=== PATIENT | male | born 1945 | race Caucasian/White ===

== ENCOUNTER → 2016-11-13 | Outpatient (CLI) | payer OTHER ==
[~2016-11-13] MED LIST: LSN/2025 PO; OMEP20CA9 PO; OXYC1TAB3 PO
--- NOTE | 2016-11-13 15:23 | DIAGNOSTIC IMAGING REPORT ---
TWO VIEW CHEST CLINICAL HISTORY: Preoperative examination. FINDINGS: PA and lateral chest radiographs are compared to study dated 09/26/2015. The cardiomediastinal silhouette is unremarkable. Atherosclerotic calcification is noted in the thoracic aorta. Emphysematous change and chronic interstitial thickening are similar to previous. No airspace consolidation or pleural effusion is identified. There is no pneumothorax. The skeletal structures are osteopenic. The bony thorax appears intact. IMPRESSION: Emphysematous change with no active disease in the chest. Electronically signed by: Kin Drummond M.D. 11/13/2016 3:21 PM Dictated Date/Time: 11/13/2016 3:20 PM
[2016-11-13 16:45] LABS: URINE APPEARANCE CLEAR (CLEAR); URINE BILIRUBIN NEG (NEG); URINE COLOR YELLOW; URINE NITRITE NEG (NEG); URINE SPECIFIC GRAVITY 1.011 (1.000-1.030); UROBILINOGEN NEG (NEG); ZZUR CULT IF INDIC CLEAN CATCH NO
[2016-11-13 17:00] LABS: MANUAL MICROSCOPIC REQUIRED? NO; REVIEW REQ? NO
== END | disposition home or self-care (01) ==
LOC: C.RAD 14:46
PROVIDERS: ATTEND Orthopaedic Surgery
DX: Z01.810 Encounter for preprocedural cardiovascular examination (principal); Z01.811 Encounter for preprocedural respiratory examination; M25.512 Pain in left shoulder; I49.3 Ventricular premature depolarization

== ENCOUNTER → 2017-04-30 | Outpatient (CLI) | payer OTHER ==
--- NOTE | 2017-04-30 13:45 | DIAGNOSTIC IMAGING REPORT ---
CT SCAN OF THE BRAIN WITHOUT IV CONTRAST CLINICAL HISTORY: Dementia. Change in mental status. COMPARISON STUDY: CT of the brain dated 11/08/14. TECHNIQUE: Unenhanced axial CT scan of the brain is performed from the vertex to the skull base. CT DOSE: 537.48 mGy.cm FINDINGS: Brain parenchyma: There are age-related involutional changes noting mild subcortical and periventricular microangiopathic change. There is no hemorrhage, mass effect, or evidence of acute territorial ischemia by CT criteria. Alberto-white matter is preserved. No extra-axial fluid collection is seen. Ventricles, sulci, cisterns: Prominent secondary to involutional change. Intracranial vasculature: There is atherosclerotic calcification of the cavernous carotid arteries. Calvarium: Unremarkable. Sinuses and mastoids: The visualized paranasal sinuses are clear. The mastoid air cells are well pneumatized. Orbits: The bony orbits are grossly intact. There are bilateral ocular lens implants. IMPRESSION: There is no hemorrhage, mass effect, or evidence of acute territorial ischemia by CT criteria. Electronically signed by: Kin Drummond M.D. 04/30/2017 1:43 PM Dictated Date/Time: 04/30/2017 1:41 PM
== END | disposition home or self-care (01) ==
LOC: C.CTS 13:10
PROVIDERS: ATTEND Family Medicine
DX: F03.91 Unspecified dementia, unspecified severity, with behavioral disturbance (principal); R41.82 Altered mental status, unspecified; R63.4 Abnormal weight loss

== ENCOUNTER → 2017-12-10 | Outpatient (CLI) | payer OTHER ==
--- NOTE | 2017-12-10 13:25 | DIAGNOSTIC IMAGING REPORT ---
L HIP UNILATERAL 2 VIEWS HISTORY: 72 years-old Male LT HIP PAIN acute left-sided hip and lower back pain COMPARISON: None available TECHNIQUE: 2 views of the left hip FINDINGS: Mild degenerative changes about the left femoral acetabular joint. No acute fracture or dislocation. Calcifications of the pelvis suggest phleboliths. Fusion hardware of the lumbosacral spine is partially imaged. IMPRESSION: No acute fracture or dislocation. The above report was generated using voice recognition software. It may contain grammatical, syntax or spelling errors. Electronically signed by: Ronaldo Palmer M.D. 12/10/2017 1:23 PM Dictated Date/Time: 12/10/2017 1:22 PM
--- NOTE | 2017-12-10 13:26 | DIAGNOSTIC IMAGING REPORT ---
L-SPINE MIN 4 VIEWS ROUTINE HISTORY: Pain M54.5 COMPARISON: None. FINDINGS: There is no fracture. No subluxation. Moderate degenerative disc changes throughout. Grade 1 retrolisthesis L3 on L4 secondary to degenerative changes of posterior elements. No evidence for compression deformity. Findings of laminectomy and fusion at L4, L5, and S1. Fusion hardware is intact. Disc spacers are present at L4-L5 and L5-S1. IMPRESSION: Degenerative and postoperative change. No acute process. The above report was generated using voice recognition software. It may contain grammatical, syntax or spelling errors. Electronically signed by: Rian Ellis M.D. 12/10/2017 1:25 PM Dictated Date/Time: 12/10/2017 1:22 PM
== END | disposition home or self-care (01) ==
LOC: C.RAD 12:37
PROVIDERS: ATTEND Family Medicine
DX: M54.5 Low back pain (principal); M79.605 Pain in left leg

== ENCOUNTER 2024-12-12 10:20 | Inpatient (IN) ==
[2024-12-12] MEDS: TICAGRELOR 90 MG TAB PO ONE (10:28)
[2024-12-12] MEDS: HEPARIN SOD 5,000 UNIT/0.5 ML VIAL ONE (10:28)
--- NOTE | 2024-12-12 10:36 | Pre Anesthesia Assessment ---
Date of Service December 12, 2024 Pre Sedation Assessment Vital Signs Pulse Resp BP Pulse Ox O2 Del Method 12/12/24 10:14 72 20 141/94 H 96 Room Air Cardiovascular RRR, no murmur, no edema + regular rate + S1 normal and + S2 normal + capillary refill normal Respiratory normal respiratory effort, lungs clear to auscultation Pre-Sedation Airway Assessment Smoking Status: Former smoker Mallampati Class: II ASA: ASA3 Procedure Planning Contraindications for Sedation: none Notes The planned sedation has been discussed with the patient. Informed Consent was obtained. I have identified the patient, determined the appropriateness of sedation and have assessed the patient immediately prior to the procedure. All medicine(s) and interventions are by my order.
[2024-12-12 10:52] LABS: Basophils # (auto) 0.11 K/uL (0.00-0.20); Basophils % (auto) 0.9 %; Eosinophils % (auto) 2.3 %; Hematocrit (blood only) 46.4 % (42.0-52.0); Hemoglobin 16.5 g/dl (14.0-18.0); Immature Granulocytes # (auto) 0.06 K/uL (0.01-0.20); Immature Granulocytes % (auto) 0.5 %; Lymphocytes # (auto) 1.57 K/uL (1.20-3.40); Lymphocytes % (auto) 12.1 %; Mean Corpuscular Hemoglobin 33.5 pg (25.0-34.0); Mean Corpuscular Hgb Conc 35.6 g/dL (32.0-36.0); Mean Corpuscular Volume 94.1 fL (80.0-100.0); Mean Platelet Volume 9.4 fL (9.4-12.4); Monocytes # (auto) 0.69 K/uL (0.11-0.59); Monocytes % (auto) 5.3 %; Neutrophils % (auto) 78.9 %; Platelet Count 318 K/uL (130-400); RDW Coefficient of Variation 12.3 % (11.5-14.5); RDW Standard Deviation 42.9 fL (36.4-46.3); Red Blood Count 4.93 M/uL (4.70-6.10); White Blood Count 12.93 K/ul (4.8-10.8)
[2024-12-12] MEDS: TICAGRELOR 90 MG TAB ONE (10:57)
[2024-12-12] MEDS: niCARdipine HCL INJ 2.5 MG/ML 10 ML AMP ONE (10:57)
[2024-12-12] MEDS: NITROGLYCERIN/D5W 100MCG/ML 20ML SYR ONE (10:57)
[2024-12-12] MEDS: HEPARIN SOD (PORCINE) 1000 UNIT/ML IV ONE (10:58)
[2024-12-12 11:08] LABS: Albumin Globulin Ratio 2.1 (0.9-2); Albumin Level 4.6 gm/dl (3.4-5.0); BUN Creatinine Ratio 14.8 (10-20); Bilirubin,Total 0.4 mg/dl (0.2-1.0); Calcium 9.4 mg/dl (8.6-10.3); Creatinine Clr Calc Pharmacy 64.2 ml/min; Globulin 2.2 gm/dl (2.5-4.0); Magnesium 1.9 mg/dl (1.7-2.4); Potassium 4.3 mmol/L (3.5-5.1); Total Protein 6.8 gm/dl (6.0-8.3)
[2024-12-12] MEDS: HEPARIN (PORCINE) 1000 UNIT/ML 10 ML (CATH LAB USE ONLY) ONE (11:16)
[2024-12-12 11:17] LABS: Partial Thromboplastin Time 28 Seconds (21-31); Prothrombin Time 10.6 Seconds (9.0-12.0)
[2024-12-12] MEDS: fentaNYL citrate PF 100 MCG/2 ML VIAL ONE (11:17)
[2024-12-12] MEDS: MIDAZOLAM HCL 1 MG/ML 2ML VIAL ONE (11:17)
[2024-12-12] MEDS: LIDOCAINE 1% LOCAL 20 ML VIAL ONE (11:17)
[2024-12-12] MEDS: FUROSEMIDE 40 MG/4 ML VIAL IV ONE (11:18)
[2024-12-12] MEDS ORDERED: NITROGLYCERIN SL 0.4 MG/TAB TAB SL PRN (11:22)
--- NOTE | 2024-12-12 11:22 | Cardiac Catheterization ---
Cardiac Cath Procedure Full Procedure Date December 12, 2024 Pre-Procedure Diagnosis Pre-Procedure Diagnosis: STEMI (Lateral STEMI) AUC Score AUC Score: 9 Post-Procedure Diagnosis Post-Procedure Diagnosis: Severe CAD, Successful PCI and Decreased LV Systolic Function Procedure(s) Performed Procedure(s) Performed: Coronary Angiography, Left Heart Cath, LV Angiography (STEMI cath report Procedures performed 1. Retrograde insertion of a right radial sheath, 5/6 slender using Seldinger technique 2. Coronary angiography 3. Left heart cath and left ventriculography 4. Percutaneous intervention of the left circumflex using a 3.0 mm x 30 mm Synergy XD drug-eluting ), PTCA and Drug Eluting Stent Timber Trimmer Juan Cantu MD Estimated Blood Loss Estimated Blood Loss: None Medication(s) Medication(s): 1 mg of versed 25 mcg of fentanyl Summary of Findings STEMI cath report Procedures performed 1. Retrograde insertion of a right radial sheath, 5/6 slender using Seldinger technique 2. Coronary angiography 3. Left heart cath and left ventriculography 4. Percutaneous intervention of the left circumflex using a 3.0 mm x 30 mm Synergy XD drug-eluting stent in the proximal to mid left circumflex 5. Moderate sedation Procedure: Patient was brought to the cardiac apposition lab in emergent condition, emergen t consent was obtained The right radial site and the right groin site were prepped in normal fashion We then administered 1% lidocaine to the right radial site We then inserted a 5/6 slender sheath in the right radial artery using Seldinger technique We then advanced a JR4 catheter to the right coronary artery and selective arteriograms were obtained We then advanced an EBU 3.0 guide to the left Yrn system and selective arteriograms were obtained, the results are as below We then used a pigtail catheter to perform a left heart catheterization and LV gram, the results are as below Left heart catheterization: LVEDP: 28 mmHg Left ventriculogram: LV function of 30 to 35% with lateral and apical wall hypokinesis Gradient across aortic valve: None noted Coronary angiography 1. Left main: Is a large size vessel which has diffuse luminal irregularities 2. Left anterior descending artery is a large size artery which has diffuse 40 to 50% stenosis in the midsegment the vessel. The rest the vessel has diffuse luminal irregularities. There are 2 small size diagonal branches which have diffuse luminal irregularities 3. Left circumflex: Is a large size artery which has 100% occlusion in the midsegment vessel. 4. Right coronary artery: Is a large size artery which has diffuse luminal irregularities Following the diagnostic portion of the coronary angiography were performed PCI of the left circumflex We then advanced a run-through wire to the distal segment of the LAD for support We then advanced a run-through wire to the distal segment of the left circumflex We then advanced a 2.5 x 12 mm NC balloon performed predilatation of the lesion 18 tex x 2 Due to lack of support from the EBU 3.0 guide we then advanced a guide liner after removing the run-through from the LAD We then advanced a 3.25 mm x 12 mm NC balloon and perform serial inflations in the proximal to mid segment of the left circumflex at 1400 stairs Lesion: Proximal to mid left circumflex Lesion length: 26 mm Pre-PCI stenosis: 100% Pre-PCI TANESHA flow: 0 Post-PCI stenosis: 0% Post-PCI stenosis: 3 Stent: We then advanced a 3.0 mm x 30 mm Synergy XD drug-eluting stent and deployed this at 16 tex Postdilatation We then advanced a 3.5 mm x 12 mm NC balloon and postdilated the proximal and midportion of the stent to 16 tex Following this a cine image of the left circumflex showed good stent expansion, good apposition and no edge dissection or no distal wire perforation the left circumflex was noted to have diffuse 40 to 50% stenosis in the mid to distal segment vessel Following the completion of the procedure the wire and catheter were removed from the body . The patient was monitored, patient's heart rate, blood pressure, respiratory rate were monitored through the entire the procedure There were no complications were noted Patient was transferred to the ICU in stable condition Case was discussed with hospital medicine as well as general crystal calibrator on- call Findings 1. Severe obstructive coronary artery disease of the left circumflex, culprit vessel for the STEMI 2. Nonobstructive coronary artery disease of the LAD and RCA 3. Severely depressed LV function of 35% 4. Severely elevated LVEDP of 28 mmHg 5. Successful PCI of the left circumflex with 1 drug-eluting stent Recommendations: We would recommend continuation of aspirin and Brilinta for 1 year We would recommend addition of beta-adarsh and statin for guideline directed medical therapy for his coronary artery disease We would recommend echocardiogram in a.m. Would recommend admission to ICU Hospital medicine to admit, cardiology to follow Would recommend outpatient cardiac rehabilitation Would recommend follow-up with primary crystal calibrator in 4 weeks Hemodynamics Rest Ao:: 97/49/71 mm of hg Final Ao: 136/85/78 mm of hg LV: 140/17/40 mm of hg Recommendations Recommendations: Medical Therapy and/or Counseling Radiation Exposure (mGy) 1449 Contrast (mls) 85 Procedural Complication(s) None Disposition ICU I attest to the content of the Intraoperative Record and any orders documented therein. Any exceptions are noted below. ACC Data: Delivery Aide Cardiac Status Clinical evaluation leading to the procedure CAD Presenation: STEMI Diagnostic Physicians Name: Juan Cantu MD Closure Device Recommendations: Medical Therapy and/or Counseling
[2024-12-12 11:23] LABS: Thyroid Stimulating Hormone 3.531 uIu/ml (0.300-4.500)
[2024-12-12 11:33] LABS: Troponin I High Sensitivity 77.8 pg/ml (0-20)
--- NOTE | 2024-12-12 11:40 | History & Physical Report ---
Date of Service December 12, 2024 Assessment & Plan (1) STEMI (ST elevation myocardial infarction): (2) Hypertension: (3) Hyperlipidemia: (4) Depression with anxiety: (5) Complex partial seizure disorder: (6) BPH (benign prostatic hyperplasia): (7) Chewing tobacco nicotine dependence: Plan 79yo male presented as heart alert. PMHx significant for HTN, HLD, tobacco use, seizure disordered. Recent addition of metoprolol by HTN clinic on 11/26 by Marla Lazo in addition to usual amlodipine, olmesartan and spironolactone. Not on ASA/statin at baseline, prior lipid panel December 2023 w/ TRG 91, Cholesterol 187 with LDL 104 and HDL 65. #STEMI, Heart Alert On admission EKG w/ depression in anterior leads concerning for STEMI to RCA vs circumflex Provided with Brillinta 180mg PO x 1 and heparin bolus prior to intervention with Dr Cantu s/p cath with Dr Cantu this morning revealed 100% occlusion to circumflex. s/p CLARE x 1. Admit to ICU Site Identification Specialist consulted Troponin elevation post-cath not unsurprising but no CP/sx at present Aspirin 81mg daily and lipitor 40mg -- new rx at dc +Metoprolol 25mg BID Olmesartan, spironolactone to resume in AM pending BP/renal function (BP 130/84 presently) EKG w/ CP, Nitro SL available Cards consulted/following Lipid panel and A1c w/ AM labs Smoking cessation to be encouraged Monitor on telemetry overnight Chronic medical issues: #Tobacco use- encourage cessation #BPH - continue flomax, monitor UOP #Seizure disorder- continue oxcarbazepine 450mg HS #Depression - continue sertraline, recent stress w/ daughter dx breast ca. Supportive care DVT proph: Heparin SQ BID Dispo: admit ICU, potential dc tomorrow if no issues overnight pending ECHO/cards. Updated /daughter in room 12/12 Will need ASA/lipitor at dc, new rx for changed metoprolol dosing History of Present Illness Chief Complaint: Heart Alert Primary Care Provider: Liborio Link, 79yo male presented as heart alert. EKG w/ depression in anterior leads concerning for STEMI to RCA vs circumflex and taken to manufacturing laborer with Dr Henderson on admission had 100% occlusion to circumflex and received 1 CLARE. Patient CP free following procedure and per cardiology to monitor in ICU post-cath and antiplatelet therapy has been ordered. PMHx significant for HTN, HLD, tobacco use, seizure disorder, venous stasis, hypoNa with recent stress of daughter dx breast ca and seen by HTN clinic and at that time was on amlodipine 10mg, olmesartan 40mg, spironolactone 50mg daily w/ systolic BP to 130s however do note recent fill for metoprolol succinate 25mg daily on 11/26 from Marla Marker from HTN clinic. Not prior on statin or aspirin use at baseline and Lipid panel from December 2023 w/ TRG 91, Cholesterol 187 with LDL 104 and HDL 65. Smoking history: + Hx BPH, on Flomax Maintained on oxcarbazepine 450mg HS for seizure disorder Admission post-cath for continued monitoring and changed metoprolol to 25mg BID. Eval post-cath in ICU 110, sitting up in bed eating lunch. Reports feeling MUCH better than this morning. His main symptom per daughter in room were significant weakness yesterday but no significant CP/SOB or increased GARCIA. Discussed stent placement and aspirin/statin, was not on either prior to admission. Did have some right knee discomfort/thought maybe gout in the past, currently NO issues. TR band intact, to start removing air around 2pm. No abdominal pain/nausea and will plan to monitor overnight with possible discharge tomorrow and medications will be reviewed. Discussed to alert nursing of any return of symptoms or development of CP/SOB. Questions/concerns addressed at this time Allergies Allergy/AdvReac Type Severity Reaction Status Date / Time Penicillins Allergy Severe Hives/throat Verified 11/24/24 12:56 edema - Amoxil ranitidine Allergy Intermediate Blisters Verified 11/24/24 12:56 in mouth amoxicillin Allergy HIVES/THROAT Verified 12/12/24 11:52 EDEMA Home Medications Medication Instructions Recorded Confirmed Type oxcarbazepine 150 mg tablet 450 mg PO HS 08/08/21 11/24/24 History olmesartan 40 mg tablet 40 mg PO QDAY #90 tabs 01/23/24 11/24/24 Rx amlodipine 10 mg tablet 10 mg PO DAILY #90 tabs 01/26/24 11/24/24 Rx spironolactone 50 mg tablet 50 mg PO QDAY #90 tabs 07/22/24 11/24/24 Rx tamsulosin 0.4 mg capsule 0.4 mg PO DAILY #90 caps 10/01/24 11/24/24 Rx metoprolol succinate 25 mg 25 mg PO DAILY #30 tabs 11/26/24 Rx tablet,extended release 24 hr Past Med/Surg History Problem List (Updated 12/12/24 @ 12:04 by Dima Harrell MD) 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 STEMI (ST elevation myocardial infarction) Hyponatremia Low back pain potentially associated with spinal stenosis Irritated nevus of face Sensorineural hearing loss of both ears Chewing tobacco nicotine dependence Chronic venous stasis dermatitis of both lower extremities Hypertension Neurogenic claudication due to lumbar spinal stenosis (Chronic) Tremor (Chronic) Hyperlipidemia Gout (Chronic) Depression with anxiety Complex partial seizure disorder (Chronic) BPH (benign prostatic hyperplasia) (Chronic) Medical History Acute bursitis of left shoulder Lower back pain Pain in joint of left shoulder Mild cognitive impairment Osteoarthritis Degenerative disc disease Chronic back pain Family history of diabetes mellitus Seizure Surgical History History of hand surgery History of elbow surgery History of repair of rotator cuff History of back surgery History of cataract extraction with lens replacement Surgery, elective Fusion of spine History of arthroscopy Family History Mother Diabetes Gall bladder disease Hypertension Aneurysm Father Aneurysm Lung disease Cardiac disorder Brother Cardiac disorder Unknown Myocardial infarction Other Family history of diabetes mellitus Denies family history of Ovarian cancer Prostate cancer Breast cancer Colorectal cancer Social History Smoking Status: Never smoker Tobacco Type: Cigarettes and Smokeless Tobacco (Dip or Chew) Age Started Using Tobacco: 21; Age Quit Using Tobacco: 46; packs per day: 1; Cigarettes Per Day: 20; Second Hand Exposure: No; Do You Dip or Chew Tobacco: Yes (1 can per 2-3 days ); Hx Alcohol Use: No Hx Substance Use: No Preferred Language: R[place] Communication Ability: Effective Visual Impairment: No Limitations Hearing Ability: Hard of Hearing Director Trial Required: No Beliefs That Will Affect Care: None marital status: Current Living Situation: Spouse current occupational status: retired current occupation: retired from career with [employer] How many Children do You have: 4 Feels Safe at Home: Yes Safety Concerns: Feels Safe At This Time Childhood Exposure to Second-Hand Smoke: No Diet: low salt and regular Diet Comment: reports some intake of lunch meat, prepares most food at home. caffeine: Yes (3 cups of coffee a day ) Dental Care, Regularly: No Physical Activity Frequency: Does not Exercise Physical Activity Frequency Comment: very active in his yard, walks. Seatbelt Use: always Sunscreen Use: Yes (sometimes ) Do you think of yourself as: straight/heterosexual Gender Identity: Male Assistive Devices: Denture - Upper and Denture - Lower Physical Exam Physical Exam: General: 79yo male sitting up in bed eating lunch, NAD, family in room Head atraumatic, +facial hair, mmm, trachea midline Resp; even/unlabored, on 2L NC post-cath, no tachypnea/cough CV: RRR, no significant m/r/g, no pitting edema or calf tenderness, pulses present TR band intact, no significant bleeding GI: +BS,soft/NT MSK/Neuro: nonfocal, not confused, answering questions appropriately Psych: AOx3, cooperative with exam Results & Data Results & Data Vital Signs (Past 12 Hours) Vital Signs Pulse Resp BP Pulse Ox O2 Del Method 12/12/24 10:39 70 12/12/24 10:31 130/84 12/12/24 10:31 130/84 12/12/24 10:31 75 20 130/84 95 12/12/24 10:31 70 20 130/84 96 12/12/24 10:30 69 17 96 12/12/24 10:30 140/92 12/12/24 10:30 140/92 12/12/24 10:14 72 20 141/94 H 96 Room Air Laboratory Results 12/12/24 12/12/24 12/12/24 Range/Units 12:34 10:36 10:20 WBC 12.93 H (4.8-10.8) K/ul RBC 4.93 (4.70-6.10) M/uL Hgb 16.5 (14.0-18.0) g/dl Hct 46.4 (42.0-52.0) % MCV 94.1 (80.0-100.0) fL MCH 33.5 (25.0-34.0) pg MCHC 35.6 (32.0-36.0) g/dL RDW Std Deviation 42.9 (36.4-46.3) fL RDW Coeff of Obed 12.3 (11.5-14.5) % Plt Count 318 (130-400) K/uL MPV 9.4 (9.4-12.4) fL Immature Gran % (Auto) 0.5 % Neut % (Auto) 78.9 % Lymph % (Auto) 12.1 % [place] % (Auto) 5.3 % Eos % (Auto) 2.3 % Baso % (Auto) 0.9 % Neut # (Auto) 10.20 H (1.40-6.50) K/uL Lymph # (Auto) 1.57 (1.20-3.40) K/uL [place] # (Auto) 0.69 H (0.11-0.59) K/uL Eos # (Auto) 0.30 (0.00-0.50) K/uL Baso # (Auto) 0.11 (0.00-0.20) K/uL Immature Gran # (Auto) 0.06 (0.01-0.20) K/uL PT 10.6 (9.0-12.0) Seconds INR 1.0 (0.9-1.1) APTT 28 (21-31) Seconds PTT Ratio 1.0 Activ Coag Time Kaolin 389 H (94-140) SECONDS Sodium 132 L (136-145) mmol/L Potassium 4.3 (3.5-5.1) mmol/L Chloride 100 (98-107) mmol/L Carbon Dioxide 27 (21-32) mmol/L Anion Gap 5 (3-11) BUN 16 (6-23) mg/dl Creatinine 1.08 (0.6-1.4) mg/dl Est Cr Clr Drug Dosing 64.2 ml/min eGFR 70.24 BUN/Creatinine Ratio 14.8 (10-20) Glucose 113 H (70-99(Fasting)) mg/dl Calcium 9.4 (8.6-10.3) mg/dl Magnesium 1.9 (1.7-2.4) mg/dl Total Bilirubin 0.4 (0.2-1.0) mg/dl AST 20 (13-39) U/L ALT 17 (7-52) U/L Alkaline Phosphatase 77 (34-104) U/L Total Creatine Kinase 92 (30-223) U/L Troponin I High Sens 02492.7 H* D 77.8 H* (0-20) pg/ml B-Natriuretic Peptide 47 (0-100) pg/ml Total Protein 6.8 (6.0-8.3) gm/dl Albumin 4.6 (3.4-5.0) gm/dl Globulin 2.2 L (2.5-4.0) gm/dl Albumin/Globulin Ratio 2.1 H (0.9-2) Lipase 17 (11-82) U/L TSH 3.531 (0.300-4.500) uIu/ml ECG Additional Comments: EKG review SR w/ ST depression in anterior leads concerning for STEMI RCA/circumflex. Supervising Physician Co-Signing Physician Notes The patient was seen by me. The chart was reviewed. Case discussed with JACKELINE Perales. Agree with assessment and plan PG Care Time/CCT Total # of Minutes Spent Total Time Spent with Patient: Total time spent is greater than 50% in coordination of care (as documented) at patient's floor/unit and/or counseling patient: Coding Level of Care Code 99612 INT INP/OBS CARE 3MIN Diagnoses STEMI (ST elevation myocardial infarction) I21.3 Primary hypertension I10 Hypertension type: primary hypertension Hyperlipidemia E78.5 Depression with anxiety F41.8 Complex partial seizure disorder G40.209 BPH (benign prostatic hyperplasia) N40.0 Chewing tobacco nicotine dependence F17.220 (2) Hypertension Hypertension type: primary hypertension Qualified Code(s): I10 - Essential (primary) hypertension
--- NOTE | 2024-12-12 12:08 | Critical Care Consultation ---
Date of Consultation December 12, 2024 Assessment & Plan (1) STEMI (ST elevation myocardial infarction): (2) 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: (3) Hyperlipidemia: (4) Hypertension: Plan Impression: 79-year-old male with hypertension hyperlipidemia presenting with acute coronary syndrome and an acute occluded circumflex status post drug- eluting stent. LVEDP was elevated at 28 and ejection fraction was reduced in the lab estimated at 30 to 35%. He is hemodynamically stable in the ICU. Recommendations: 1. Neurologic: No current issues. Patient can get up to the chair as tolerated. 2. Cardiovascular: Acute coronary syndrome status post drug-eluting stent. Continue dual antiplatelet agents. Discontinue amlodipine. Will continue metoprolol. If blood pressure allows, will need to initiate and uptitrate MAGDI inhibitor. Will need cardiac rehab in the outpatient setting. Await formal echocardiogram. Continue high-dose statin therapy 3. Pulmonary: No current issues. Weaning oxygen as tolerated. 4. Renal: Mild hyponatremia. Electrolytes and acid-base status are appropriate. His EDP was elevated and would consider initiation of a diuretic within the next 24 hours but will hold for now given recent contrast administration. 5. GI: Advancing diet as tolerated. 6. Endocrine: Glycemic control per protocol. Await hemoglobin A1c. 7. Heme-onc: Mild leukocytosis likely secondary to acute coronary syndrome. No indication for infection and no indication for antibiotics currently. 8. ID: No current issues. Will continue to follow in the ICU for protocol. Disposition per cardiology but anticipate he can likely be downgraded from the ICU in the next 12 to 24 hours. History of Present Illness Attending Physician: Andres Olivier MD History of Present Illness Asked by hospitalist to assist in evaluation management this patient with acute coronary syndrome status post drug-eluting stent placement. Patient is seen and examined in the ICU. History is obtained from discussion with the patient as well as review the electronic medical record. Patient is a 79-year-old male with a history of hypertension and hyperlipidemia who presented to the emergency room today with acute onset of chest pain radiating down his left arm. He had ST elevations on presentation was taken rapidly to the [facility]. He had a drug-eluting stent placed to the proximal circumflex. LVEDP was elevated at 28 and ejection fraction appeared to be 30 to 35% with lateral and apical hypokinesis. There was diffuse disease in the LAD and diffuse luminal irregularities in the right coronary. He was initiated on aspirin and Brilinta. The patient is currently pain-free. He denies any shortness of breath. No michael sea or vomiting. He is never had chest pain like this previously. Allergies Allergy/AdvReac Type Severity Reaction Status Date / Time Penicillins Allergy Severe Hives/throat Verified 11/24/24 12:56 edema - Amoxil ranitidine Allergy Intermediate Blisters Verified 11/24/24 12:56 in mouth amoxicillin Allergy HIVES/THROAT Verified 12/12/24 11:52 EDEMA Home Medications Medication Instructions Recorded Confirmed Type oxcarbazepine 150 mg tablet 450 mg PO HS 08/08/21 11/24/24 History olmesartan 40 mg tablet 40 mg PO QDAY #90 tabs 01/23/24 11/24/24 Rx amlodipine 10 mg tablet 10 mg PO DAILY #90 tabs 01/26/24 11/24/24 Rx spironolactone 50 mg tablet 50 mg PO QDAY #90 tabs 07/22/24 11/24/24 Rx tamsulosin 0.4 mg capsule 0.4 mg PO DAILY #90 caps 10/01/24 11/24/24 Rx metoprolol succinate 25 mg 25 mg PO DAILY #30 tabs 11/26/24 Rx tablet,extended release 24 hr Patient History Medical History Acute bursitis of left shoulder Lower back pain Pain in joint of left shoulder Mild cognitive impairment Osteoarthritis Degenerative disc disease Chronic back pain Family history of diabetes mellitus Seizure Surgical History History of hand surgery History of elbow surgery History of repair of rotator cuff History of back surgery History of cataract extraction with lens replacement Surgery, elective Fusion of spine History of arthroscopy Family History Mother Diabetes Gall bladder disease Hypertension Aneurysm Father Aneurysm Lung disease Cardiac disorder Brother Cardiac disorder Unknown Myocardial infarction Other Family history of diabetes mellitus Denies family history of Ovarian cancer Prostate cancer Breast cancer Colorectal cancer Social History Smoking Status: Former smoker Tobacco Type: Cigarettes and Smokeless Tobacco (Dip or Chew) Age Started Using Tobacco: 21; Age Quit Using Tobacco: 46; packs per day: 1; Cigarettes Per Day: 20; Second Hand Exposure: No; Do You Dip or Chew Tobacco: Yes (1 can per 2-3 days ); Hx Alcohol Use: Yes Alcohol Intake Frequency: Monthly or Less Alcohol Intake Frequency Comment: occasional drink, does not drink often. 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 caffeine: Yes (3 cups of coffee a day ) Dental Care, Regularly: No Physical Activity Frequency: Does not Exercise Physical Activity Frequency Comment: very active in his yard, walks. Seatbelt Use: always Sunscreen Use: Yes (sometimes ) Do you think of yourself as: straight/heterosexual Gender Identity: Male Assistive Devices: Denture - Upper, Denture - Lower and Glasses Review of Systems Review of Systems: All systems reviewed & are unremarkable except as noted in Subjective Physical Exam Constitutional: WD/WN, vitals as above Neck: trachea midline, no thyromegaly Respiratory: normal respiratory effort, lungs clear to auscultation Cardiovascular: RRR, no murmur, no edema Gastrointestinal (Abdomen): normal bowel sounds, soft, nontender, no hepatosplenomegaly Musculoskeletal: Extremities: extremities normal to inspection Skin: no rashes, warm and dry Neurologic: Nonfocal exam Lymphatic: no cervical lymphadenopathy Results & Data Results & Data Vital Signs (Past 12 Hours) Vital Signs Pulse Resp BP Pulse Ox O2 Del Method 12/12/24 10:39 70 12/12/24 10:31 130/84 12/12/24 10:31 130/84 12/12/24 10:31 75 20 130/84 95 12/12/24 10:31 70 20 130/84 96 12/12/24 10:30 69 17 96 12/12/24 10:30 140/92 12/12/24 10:30 140/92 12/12/24 10:14 72 20 141/94 H 96 Room Air Critical Care Results & Data Vital Signs (Past 12 Hours) Vital Signs Pulse Resp BP Pulse Ox O2 Del Method 12/12/24 10:39 70 12/12/24 10:31 130/84 12/12/24 10:31 130/84 12/12/24 10:31 75 20 130/84 95 12/12/24 10:31 70 20 130/84 96 12/12/24 10:30 69 17 96 12/12/24 10:30 140/92 12/12/24 10:30 140/92 12/12/24 10:14 72 20 141/94 H 96 Room Air Lab & Micro Results (Past 24 Hours) RBC 4.93 M/uL (4.70-6.10) 12/12/24 WBC 12.93 K/ul (4.8-10.8) H 12/12/24 Hgb 16.5 g/dl (14.0-18.0) 12/12/24 Hct 46.4 % (42.0-52.0) 12/12/24 MCV 94.1 fL (80.0-100.0) 12/12/24 MCH 33.5 pg (25.0-34.0) 12/12/24 MCHC 35.6 g/dL (32.0-36.0) 12/12/24 RDW Standard Deviation 42.9 fL (36.4-46.3) 12/12/24 RDW Coefficient of Variation 12.3 % (11.5-14.5) 12/12/24 Plt Count 318 K/uL (130-400) 12/12/24 MPV 9.4 fL (9.4-12.4) 12/12/24 Neutrophils (%) (Auto) 78.9 % 12/12/24 Lymphocytes (%) (Auto) 12.1 % 12/12/24 Monocytes # (Auto) 0.69 K/uL (0.11-0.59) H 12/12/24 Eosinophils # (Auto) 0.30 K/uL (0.00-0.50) 12/12/24 Immature Granulocyte % (Auto) 0.5 % 12/12/24 Neutrophils # (Auto) 10.20 K/uL (1.40-6.50) H 12/12/24 Lymphocytes # (Auto) 1.57 K/uL (1.20-3.40) 12/12/24 Monocytes # (Auto) 0.69 K/uL (0.11-0.59) H 12/12/24 Eosinophils # (Auto) 0.30 K/uL (0.00-0.50) 12/12/24 Basophils # (Auto) 0.11 K/uL (0.00-0.20) 12/12/24 Immature Granulocyte # (Auto) 0.06 K/uL (0.01-0.20) 5 Na 132 mmol/L (136-145) L 12/12/24 K 4.3 mmol/L (3.5-5.1) 12/12/24 Cl 100 mmol/L (98-107) 12/12/24 CO2 27 mmol/L (21-32) 12/12/24 Anion Gap 5 (3-11) 12/12/24 BUN 16 mg/dl (6-23) 12/12/24 Creatinine 1.08 mg/dl (0.6-1.4) 12/12/24 BUN/Creatinine Ratio 14.8 (10-20) 12/12/24 Glu 113 mg/dl (70-99(Fasting)) H 12/12/24 Ca 9.4 mg/dl (8.6-10.3) 12/12/24 Total Bilirubin 0.4 mg/dl (0.2-1.0) 12/12/24 AST 20 U/L (13-39) 12/12/24 ALT 17 U/L (7-52) 12/12/24 Alkaline Phosphatase 77 U/L (34-104) 12/12/24 TP 6.8 gm/dl (6.0-8.3) 12/12/24 Albumin 4.6 gm/dl (3.4-5.0) 12/12/24 Globulin 2.2 gm/dl (2.5-4.0) L 12/12/24 Albumin/Globulin Ratio 2.1 (0.9-2) H 12/12/24 Mg 1.9 mg/dl (1.7-2.4) 12/12/24 10:36 Calcium Level 9.4 mg/dl (8.6-10.3) 12/12/24 10:36 Prothromb Time International Ratio 1.0 (0.9-1.1) 12/12/24 10:3 6 Diagnostic Findings (Past 24 Hours) Cardiac catheterization reviewed RT Ventilator Mngmt (Last Documented) Ventilator Ordered Settings Respiratory Rate 20 12/12/24 10:31 Ventilator - PT Measurements Respiratory Rate 20 Coding Level of Care Code 58698 INT INP/OBS CARE 3/75MIN Diagnoses STEMI (ST elevation myocardial infarction) I21.3 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 I50.20; I25.10 Hyperlipidemia E78.5 Primary hypertension I10 Hypertension type: primary hypertension (4) Hypertension Hypertension type: primary hypertension Qualified Code(s): I10 - Essential (primary) hypertension
[2024-12-12] MEDS ORDERED: ONDANSETRON INJ 2 MG/ML 2 ML VIAL IV PRN (12:45)
--- NOTE | 2024-12-12 13:08 | Cardiology Consultation ---
Date of Consultation December 12, 2024 Assessment & Plan (1) STEMI (ST elevation myocardial infarction): (2) CAD (coronary artery disease): (3) S/P coronary artery stent placement: (4) Ischemic cardiomyopathy: (5) Hypertension: (6) Hyperlipidemia: Plan ASSESSMENT/PLAN: 1. Circumflex STEMI: Underwent PCI with drug-eluting stent. Reduced LV systolic function on left ventriculography. Echo tomorrow to further evaluate LV systolic function. Had an episode of chest pain this evening that resolved with nitroglycerin and no ischemic changes noted on ECG. Continue aspirin 81 mg daily indefinitely. Continue Brilinta for at least 1 year. Continue beta- adarsh, ARB. High intensity statin therapy initiated. Cardiac rehab. 2. CAD s/p Cx PCI: We discussed cath findings. We also discussed residual nonobstructive CAD in the LAD and circumflex. Continue dual antiplatelet therapy as above. High intensity statin therapy. Plan as above. 3. Hypertension: Follows in the hypertension clinic through nephrology. Blood pressure has been mostly reasonably controlled here. Plan as above. 4. Dyslipidemia: Was not previously on statin therapy. Agree with high intensity statin therapy. 5. Ischemic cardiomyopathy: Reduced LV systolic function on left ventriculograp hy. Formal echo tomorrow to better evaluate LV systolic function. Appears euvolemic. LVEDP was elevated while acutely ischemic. Monitor for signs or symptoms of hypervolemia. 6. Disposition: Cardiology will continue to follow. Patient care discussed with Dr. Olivier of the primary hospitalist service and also communicated with Dr. Cantu of interventional cardiology. Thank you for allowing me to participate in the care of your patient. Please call for any other questions or concerns. Sincerely, Kvng Mcnamara M.D. History of Present Illness Reason for Consultation: STEMI Requesting Physician: Andres Olivier MD Attending Physician: Andres Olivier MD History of Present Illness Mr. Guadarrama is a very pleasant 79-year-old gentleman with a history significant for hypertension, dyslipidemia, and complex partial seizure disorder. He presented on 12/12/2024 with chest discomfort. The chest discomfort was a left-sided chest discomfort that began at 6:30 AM on 12/12/2024 and then radiated to the substernal area. It also radiated to the left arm and at one point to his mouth. This occurred right after he took the dog outside. There was no associated shortness of breath or diaphoresis. Prehospital, EMS triggered heart alert. His initial ECG on 12/12/2024 demonstrated sinus rhythm with lateral ST elevation in anterior ST depression and T wave inversion. He was taken to the [facility] by oil and gas specialist, Dr. Cantu and underwent PCI of an occluded circumflex. Following the procedure, he had very minimal residual pain, stating that 99% of the pain had subsided. A week prior to hospitalization, he felt extremely tired for a few days but otherwise denies chest discomfort, shortness of breath, syncope, near syncope, palpitations, edema, or bleeding. He is very active but does not participate in dedicated exercise. For 1 week recently, his right knee became swollen and painful but it has since improved. Review of systems: As above. Family history: Father had CAD. 2 brothers had CAD. Social history: He quit smoking in 1986. Rare alcohol. No drugs. Lives at home with his . 4 children (3 daughters and 1 son). His and daughters (Aishwarya Walters firebrick layer for [employer]) were at the bedside. Allergies Allergy/AdvReac Type Severity Reaction Status Date / Time Penicillins Allergy Severe Hives/throat Verified 11/24/24 12:56 edema - Amoxil ranitidine Allergy Intermediate Blisters Verified 11/24/24 12:56 in mouth amoxicillin Allergy HIVES/THROAT Verified 12/12/24 11:52 EDEMA Home Medications Medication Instructions Recorded Confirmed Type oxcarbazepine 150 mg tablet 450 mg PO HS 08/08/21 11/24/24 History olmesartan 40 mg tablet 40 mg PO QDAY #90 tabs 01/23/24 11/24/24 Rx amlodipine 10 mg tablet 10 mg PO DAILY #90 tabs 01/26/24 11/24/24 Rx spironolactone 50 mg tablet 50 mg PO QDAY #90 tabs 07/22/24 11/24/24 Rx tamsulosin 0.4 mg capsule 0.4 mg PO DAILY #90 caps 10/01/24 11/24/24 Rx metoprolol succinate 25 mg 25 mg PO DAILY #30 tabs 11/26/24 Rx tablet,extended release 24 hr Problem List (Updated 12/12/24 @ 21:04 by Jose Mcnamara MD) Ischemic cardiomyopathy S/P coronary artery stent placement CAD (coronary artery disease) 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 STEMI (ST elevation myocardial infarction) Hyponatremia Low back pain potentially associated with spinal stenosis Irritated nevus of face Sensorineural hearing loss of both ears Chewing tobacco nicotine dependence Chronic venous stasis dermatitis of both lower extremities Hypertension Neurogenic claudication due to lumbar spinal stenosis (Chronic) Tremor (Chronic) Hyperlipidemia Gout (Chronic) Depression with anxiety Complex partial seizure disorder (Chronic) BPH (benign prostatic hyperplasia) (Chronic) Patient History Medical History Acute bursitis of left shoulder Lower back pain Pain in joint of left shoulder Mild cognitive impairment FOLLOWING WITH [facility] Osteoarthritis Degenerative disc disease Chronic back pain Family history of diabetes mellitus Seizure HX OF PARTIAL COMPLEX SEIZURES, SOME MEMORY LOSS. FOLLOWING WITH DR. MCCOY, [facility]. Surgical History History of hand surgery History of elbow surgery History of repair of rotator cuff History of back surgery History of cataract extraction with lens replacement Surgery, elective Fusion of spine History of arthroscopy Family History Mother Diabetes Gall bladder disease Hypertension Aneurysm Father Aneurysm Lung disease Cardiac disorder Brother Cardiac disorder Unknown Myocardial infarction Other Family history of diabetes mellitus Denies family history of Ovarian cancer Prostate cancer Breast cancer Colorectal cancer Social History Smoking Status: Never smoker Tobacco Type: Cigarettes and Smokeless Tobacco (Dip or Chew) Age Started Using Tobacco: 21; Age Quit Using Tobacco: 46; packs per day: 1; Cigarettes Per Day: 20; Second Hand Exposure: No; Do You Dip or Chew Tobacco: Yes (1 can per 2-3 days ); Hx Alcohol Use: No Hx Substance Use: No Preferred Language: [place] Communication Ability: Effective Visual Impairment: No Limitations Hearing Ability: Hard of Hearing Shipping/Receiving Clerk Required: No Beliefs That Will Affect Care: None marital status: Current Living Situation: Spouse current occupational status: retired current occupation: retired from career with [employer] How many Children do You have: 4 Feels Safe at Home: Yes Safety Concerns: Feels Safe At This Time Childhood Exposure to Second-Hand Smoke: No Diet: low salt and regular Diet Comment: reports some intake of lunch meat, prepares most food at home. caffeine: Yes (3 cups of coffee a day ) Dental Care, Regularly: No Physical Activity Frequency: Does not Exercise Physical Activity Frequency Comment: very active in his yard, walks. Seatbelt Use: always Sunscreen Use: Yes (sometimes ) Do you think of yourself as: straight/heterosexual Gender Identity: Male Assistive Devices: Denture - Upper and Denture - Lower Physical Exam Physical Exam: Gen.: No acute distress. Alert and oriented. HEENT: Anicteric sclera. Neck: No JVD. No bruits. Normal carotid upstrokes bilaterally. Cardiac: Regular. Normal S1-S2. No murmurs, rubs, or gallops. Pulmonary: Clear to auscultation bilaterally without wheezes, rales, or rhonchi. Abdomen: Soft, nontender, nondistended, with normoactive bowel sounds. No bruits noted. Extremities: TR band present right wrist. 2+ left radial pulse. 2+ posterior tibialis pulses bilaterally. No edema or cyanosis. Psychiatric: Affect appears appropriate. Results & Data Vital Signs (Past 12 Hours) Vital Signs Temp Pulse Pulse Resp BP BP Pulse Ox 12/12/24 12:47 36.8 C 70 17 137/89 97 12/12/24 12:00 137/89 12/12/24 12:00 137/89 12/12/24 11:57 69 21 97 12/12/24 11:51 69 17 94 12/12/24 11:36 88 L 12/12/24 11:32 117/81 12/12/24 11:32 117/81 12/12/24 11:32 117/81 12/12/24 11:32 117/81 12/12/24 11:32 117/81 12/12/24 11:32 117/81 12/12/24 10:39 70 12/12/24 10:33 69 16 92 12/12/24 10:31 130/84 12/12/24 10:31 130/84 12/12/24 10:31 130/84 12/12/24 10:31 75 20 130/84 95 12/12/24 10:31 70 20 130/84 96 12/12/24 10:30 69 17 96 12/12/24 10:30 140/92 12/12/24 10:30 140/92 12/12/24 10:14 72 20 141/94 H 96 O2 Del Method O2 Flow Rate 12/12/24 12:47 Nasal Cannula 2 12/12/24 12:00 12/12/24 12:00 12/12/24 11:57 12/12/24 11:51 12/12/24 11:36 12/12/24 11:32 12/12/24 11:32 12/12/24 11:32 12/12/24 11:32 12/12/24 11:32 12/12/24 11:32 12/12/24 10:39 12/12/24 10:33 12/12/24 10:31 12/12/24 10:31 12/12/24 10:31 12/12/24 10:31 12/12/24 10:31 12/12/24 10:30 12/12/24 10:30 12/12/24 10:30 12/12/24 10:14 Room Air Laboratory Results Laboratory Results - last 24 hr 12/12/24 12/12/24 12/12/24 10:20 10:36 12:34 WBC 12.93 H RBC 4.93 Hgb 16.5 Hct 46.4 MCV 94.1 MCH 33.5 MCHC 35.6 RDW Std Deviation 42.9 RDW Coeff of Obed 12.3 Plt Count 318 MPV 9.4 Immature Gran % (Auto) 0.5 Neut % (Auto) 78.9 Lymph % (Auto) 12.1 [place] % (Auto) 5.3 Eos % (Auto) 2.3 Baso % (Auto) 0.9 Neut # (Auto) 10.20 H Lymph # (Auto) 1.57 [place] # (Auto) 0.69 H Eos # (Auto) 0.30 Baso # (Auto) 0.11 Immature Gran # (Auto) 0.06 PT 10.6 INR 1.0 APTT 28 PTT Ratio 1.0 Activ Coag Time Kaolin 389 H Sodium 132 L Potassium 4.3 Chloride 100 Carbon Dioxide 27 Anion Gap 5 BUN 16 Creatinine 1.08 Est Cr Clr Drug Dosing 64.2 eGFR 70.24 BUN/Creatinine Ratio 14.8 Glucose 113 H Calcium 9.4 Magnesium 1.9 Total Bilirubin 0.4 AST 20 ALT 17 Alkaline Phosphatase 77 Total Creatine Kinase 92 Troponin I High Sens 77.8 H* Pending B-Natriuretic Peptide 47 Total Protein 6.8 Albumin 4.6 Globulin 2.2 L Albumin/Globulin Ratio 2.1 H Lipase 17 TSH 3.531 Diagnostic Findings Labs reviewed and notable for mild hyponatremia which is chronic. Stable renal function, normal potassium, normal magnesium, normal transaminase levels, mild leukocytosis, normal hemoglobin. History and physical report reviewed. Cardiac cath report reviewed as noted above in HPI. ECG personally reviewed: ECG 12/12/2024 at 10:24 AM: Sinus rhythm [address]/T wave abnormality. Lateral ST elevation. Lateral ST elevation and anterior ST/T wave abnormalities new compared to 01/29/2024 ECG. Cardiac cath images from 12/12/2024 personally reviewed and notable for occluded early mid circumflex. Following PCI, noted that there was nonobstructive CAD in distal circumflex. Mid LAD 40 to 50%. RCA without significant CAD.LVEDP 28. Reported EF 35% with left ventriculography. Underwent PCI of mid circumflex with 3 x 30 mm Synergy XD CLARE, postdilated with 3.5 x 12 NC. Telemetry reviewed (this afternoon): Sinus rhythm. No arrhythmia. Medications Administered Current Inpatient Medications Acetaminophen (Acetaminophen 325 Mg Tab) 650 mg PO Q4H PRN PRN Reason: Pain or Fever Stop: 01/11/25 12:44 Amlodipine Besylate (Amlodipine Besylate 5 Mg Tab) 10 mg PO DAILY [facility] Stop: 01/12/25 08:59 Aspirin (Aspirin 81 Mg Ectab) 81 mg PO QAM RENATA Stop: 01/12/25 08:59 Atorvastatin Calcium (Atorvastatin 40 Mg Tab) 40 mg PO QAM RENATA Stop: 01/12/25 08:59 Heparin Sodium (Porcine) (Heparin Sod 5,000 Unit/0.5 Ml Vial) 5,000 units SQ Q12 RENATA Stop: 01/11/25 20:59 Losartan Potassium (Losartan Potassium 50 Mg Tab) 100 mg PO DAILY RENATA Stop: 01/12/25 08:59 Metoprolol Tartrate (Metoprolol Tartrate 25 Mg Tab) 25 mg PO BID RENATA Stop: 01/11/25 20:59 Nitroglycerin (Nitroglycerin Sl 0.4 Mg/Tab Tab) 0.4 mg SL Q5M PRN PRN Reason: Chest Pain Stop: 01/11/25 11:21 Ondansetron HCl (Ondansetron Inj 2 Mg/Ml 2 Ml Vial) 4 mg IV Q6H PRN PRN Reason: Nausea Stop: 01/11/25 12:44 Oxcarbazepine (Oxcarbazepine 150 Mg Tablet) 450 mg PO HS RENATA Stop: 01/11/25 20:59 Oxcarbazepine (Oxcarbazepine 150 Mg Tablet) 300 mg PO DAILY RENATA Stop: 01/12/25 08:59 Spironolactone (Spironolactone 25 Mg Tab) 50 mg PO DAILY RENATA Stop: 01/12/25 08:59 Tamsulosin HCl (Tamsulosin Hcl 0.4 Mg Cap) 0.4 mg PO DAILY RENATA Stop: 01/12/25 08:59 Ticagrelor (Ticagrelor 90 Mg Tab) 90 mg PO BID RENATA Stop: 01/11/25 22:29 PG Care Time/CCT Total # of Minutes Spent Total Time Spent with Patient: Total time spent is greater than 50% in coordination of care (as documented) at patient's floor/unit and/or counseling patient: Coding Level of Care Code 46266 INT INP/OBS CARE 3/75MIN Diagnoses STEMI (ST elevation myocardial infarction) I21.3 CAD (coronary artery disease) I25.10 S/P coronary artery stent placement Z95.5 Ischemic cardiomyopathy I25.5 Primary hypertension I10 Hypertension type: primary hypertension Hyperlipidemia E78.5 (5) Hypertension Hypertension type: primary hypertension Qualified Code(s): I10 - Essential (primary) hypertension
[2024-12-12] MEDS: OPTIRAY 350 ONE (14:31)
--- NOTE | 2024-12-12 14:42 | Emergency Department Note ---
Impression & Plan ST elevation (STEMI) myocardial infarction ED Provider Note CHIEF COMPLAINT: Chest pain HISTORY OF PRESENT ILLNESS: This 79-year-old male presents emergency department via EMS with complaints of chest pain that began around 730 this morning. The patient was given aspirin by EMS. Patient was also given IV morphine and route. He complains of a 3/10 pain at this time down from a 7/10. He states his dog woke up this morning to go out, his pain began after he returned to bed. Patient denies any cardiac history, has no stents in place. He does have a history of hypertension, seizure disorder, depression, hyperlipidemia nicotine dependency. A heart alert was called by myself via medical command. REVIEW OF SYSTEMS: A review of systems was performed with positives and pertinent negatives listed in the history of present illness. 10 systems were reviewed and are otherwise negative. ALLERGIES: see below MEDICATIONS: see below PMH: see below SOCIAL HISTORY: see below DDx: Acute coronary syndrome, PE, congestive heart failure, pneumonia, aortic dissection, hypertensive urgency among others. PHYSICAL EXAM: Vital signs reviewed. General: Well-appearing 79-year-old male, in no significant distress. HEENT: No scleral icterus, PERRLA, neck supple. Atraumatic. Cardiovascular: Regular rate and rhythm, no extra sounds. Pulmonary: Clear to auscultation bilaterally, normal work of breathing. Abdomen: Soft, nontender, nondistended, positive bowel sounds. Musculoskeletal: Atraumatic, no peripheral edema. Neurologic: Patient awake alert and oriented x 3, speech is clear Skin: Warm, dry, no rash EMERGENCY DEPARTMENT COURSE/MDM: This patient was evaluated and appeared to be in no distress. He continued to complain of a 3 out of 10 chest pain. EKG was repeated and is more significantly indicative of STEMI in the anterior lateral leads. A heart alert had been called by my medical command prior to arrival and shortly after arrival the Professional Driver team arrived. Patient was evaluated by Dr. Cantu. He requested a 5000 unit heparin bolus and 180 mg of Brilinta. Patient was taken to the catheterization lab for further management. MONITORING: An order for cardiac monitoring was placed and the patient is noted to be in a normal sinus rhythm at 69 beats per minute. EKG: To my interpretation reveals a normal sinus rhythm at 69 bpm, ST depression in the anterior leads and elevation in the lateral leads with QTc of 415. No PVC, no PAC. DISPOSITION: Professional Driver/admission Past Med/Surg History Problem List (Updated 12/15/24 @ 05:07 by Naomy Santo MD) ST elevation (STEMI) myocardial infarction (Acute) Nonsustained ventricular tachycardia Ischemic cardiomyopathy S/P coronary artery stent placement CAD (coronary artery disease) 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 STEMI (ST elevation myocardial infarction) Hyponatremia Low back pain potentially associated with spinal stenosis Irritated nevus of face Sensorineural hearing loss of both ears Chewing tobacco nicotine dependence Chronic venous stasis dermatitis of both lower extremities Hypertension Neurogenic claudication due to lumbar spinal stenosis (Chronic) Tremor (Chronic) Hyperlipidemia Gout (Chronic) Depression with anxiety Complex partial seizure disorder (Chronic) BPH (benign prostatic hyperplasia) (Chronic) Medical History Acute bursitis of left shoulder Lower back pain Pain in joint of left shoulder Mild cognitive impairment FOLLOWING WITH NEURO Osteoarthritis Degenerative disc disease Chronic back pain Family history of diabetes mellitus Seizure HX OF PARTIAL COMPLEX SEIZURES, SOME MEMORY LOSS. FOLLOWING WITH DR. MCCOY, [facility]. Surgical History History of hand surgery History of elbow surgery History of repair of rotator cuff History of back surgery History of cataract extraction with lens replacement BILATERAL Surgery, elective RIGHT ARM LIGAMENT REPAIR Fusion of spine L4-S1, [facility] 11/13/12, MAC 3, ETT 7.5, DLx1 History of arthroscopy LEFT SHOULDER Family History Mother Diabetes Gall bladder disease Hypertension Aneurysm Father Aneurysm Lung disease Cardiac disorder Brother Cardiac disorder Unknown Myocardial infarction Other Family history of diabetes mellitus Denies family history of Ovarian cancer Prostate cancer Breast cancer Colorectal cancer Social History Smoking Status: Never smoker Tobacco Type: Cigarettes and Smokeless Tobacco (Dip or Chew) Age Started Using Tobacco: 21; Age Quit Using Tobacco: 46; packs per day: 1; Cigarettes Per Day: 20; Second Hand Exposure: No; Do You Dip or Chew Tobacco: Yes (1 can per 2-3 days ); Hx Alcohol Use: No Hx Substance Use: No Preferred Language: Comoran Communication Ability: Effective Visual Impairment: No Limitations Hearing Ability: Hard of Hearing [employer] 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 caffeine: Yes (3 cups of coffee a day ) Dental Care, Regularly: No Physical Activity Frequency: Does not Exercise Physical Activity Frequency Comment: very active in his yard, walks. Seatbelt Use: always Sunscreen Use: Yes (sometimes ) Do you think of yourself as: straight/heterosexual Gender Identity: Male Assistive Devices: None Allergies Allergies Allergy/AdvReac Type Severity Reaction Status Date / Time Penicillins Allergy Severe Hives/throat Verified 11/24/24 12:56 edema - Amoxil ranitidine Allergy Intermediate Blisters Verified 11/24/24 12:56 in mouth amoxicillin Allergy HIVES/THROAT Verified 12/12/24 11:52 EDEMA Home Meds Home Medications Medication Instructions Recorded Confirmed oxcarbazepine 150 mg tablet 450 mg PO HS 08/08/21 11/24/24 Previous Rx's Medication Instructions Recorded olmesartan 40 mg tablet 40 mg PO QDAY #90 tabs 01/23/24 amlodipine 10 mg tablet 10 mg PO DAILY #90 tabs 01/26/24 spironolactone 50 mg tablet 50 mg PO QDAY #90 tabs 07/22/24 tamsulosin 0.4 mg capsule 0.4 mg PO DAILY #90 caps 10/01/24 aspirin 81 mg tablet,delayed 81 mg PO QAM #30 tabs 12/14/24 release atorvastatin 40 mg tablet 80 mg (2 x 40 mg) PO QAM #30 tabs 12/14/24 metoprolol succinate 50 mg 50 mg PO PM #30 tabs 12/14/24 tablet,extended release 24 hr nitroglycerin 0.4 mg sublingual 0.4 mg sublingual Q5M PRN chest 12/14/24 tablet (Nitrostat) pain #7 tabs ticagrelor 90 mg tablet (Brilinta) 90 mg PO BID #60 tabs 12/14/24 Results & Data (ED) Vital Signs Vital Signs - 24 hr 12/12/24 10:14 12/12/24 10:30 12/12/24 10:30 Pulse Rate 72 Pulse Rate from SpO2 Sensor Respiratory Rate 20 Respiratory Effort / Characteristics Non-Labored Spontaneous Respiratory Depth Normal Blood Pressure 141/94 H 140/92 140/92 Blood Pressure Mean 109 101 101 Pulse Oximetry 96 Oxygen Delivery Method Room Air Sepsis Recent Fever Within 48 Hours No Sepsis New/Unexplained Change in Mental Status N/A Sepsis Action Taken by Nursing No Action Required 12/12/24 10:30 12/12/24 10:31 12/12/24 10:31 Pulse Rate 69 70 75 Pulse Rate from SpO2 Sensor Respiratory Rate 17 20 20 Respiratory Effort / Characteristics Respiratory Depth Blood Pressure 130/84 130/84 Blood Pressure Mean 89 89 Pulse Oximetry 96 96 95 Oxygen Delivery Method Sepsis Recent Fever Within 48 Hours Sepsis New/Unexplained Change in Mental Status Sepsis Action Taken by Nursing 12/12/24 10:31 12/12/24 10:31 12/12/24 10:31 Pulse Rate Pulse Rate from SpO2 Sensor Respiratory Rate Respiratory Effort / Characteristics Respiratory Depth Blood Pressure 130/84 130/84 130/84 Blood Pressure Mean 89 89 89 Pulse Oximetry Oxygen Delivery Method Sepsis Recent Fever Within 48 Hours Sepsis New/Unexplained Change in Mental Status Sepsis Action Taken by Nursing 12/12/24 10:33 12/12/24 10:39 Pulse Rate 69 70 Pulse Rate from SpO2 Sensor 69 Respiratory Rate 16 Respiratory Effort / Characteristics Respiratory Depth Blood Pressure Blood Pressure Mean Pulse Oximetry 92 Oxygen Delivery Method Sepsis Recent Fever Within 48 Hours Sepsis New/Unexplained Change in Mental Status Sepsis Action Taken by [facility] Medications Current Medication List: was personally reviewed by me Laboratory Data Attestation: I reviewed the patient's lab results. 12/14/24 05:47 12/14/24 05:47 Lab Results 12/12/24 12/12/24 Range/Units 10:20 10:36 WBC 12.93 H (4.8-10.8) K/ul RBC 4.93 (4.70-6.10) M/uL Hgb 16.5 (14.0-18.0) g/dl Hct 46.4 (42.0-52.0) % MCV 94.1 (80.0-100.0) fL MCH 33.5 (25.0-34.0) pg MCHC 35.6 (32.0-36.0) g/dL RDW Std Deviation 42.9 (36.4-46.3) fL RDW Coeff of Obed 12.3 (11.5-14.5) % Plt Count 318 (130-400) K/uL MPV 9.4 (9.4-12.4) fL Immature Gran % (Auto) 0.5 % Neut % (Auto) 78.9 % Lymph % (Auto) 12.1 % [place]onder[place] % (Auto) 5.3 % Eos % (Auto) 2.3 % Baso % (Auto) 0.9 % Neut # (Auto) 10.20 H (1.40-6.50) K/uL Lymph # (Auto) 1.57 (1.20-3.40) K/uL [place] # (Auto) 0.69 H (0.11-0.59) K/uL Eos # (Auto) 0.30 (0.00-0.50) K/uL Baso # (Auto) 0.11 (0.00-0.20) K/uL Immature Gran # (Auto) 0.06 (0.01-0.20) K/uL PT 10.6 (9.0-12.0) Seconds INR 1.0 (0.9-1.1) APTT 28 (21-31) Seconds PTT Ratio 1.0 Activ Coag Time Kaolin 389 H (94-140) SECONDS Sodium 132 L (136-145) mmol/L Potassium 4.3 (3.5-5.1) mmol/L Chloride 100 (98-107) mmol/L Carbon Dioxide 27 (21-32) mmol/L Anion Gap 5 (3-11) BUN 16 (6-23) mg/dl Creatinine 1.08 (0.6-1.4) mg/dl Est Cr Clr Drug Dosing 64.2 ml/min eGFR 70.24 BUN/Creatinine Ratio 14.8 (10-20) Glucose 113 H (70-99(Fasting)) mg/dl Calcium 9.4 (8.6-10.3) mg/dl Magnesium 1.9 (1.7-2.4) mg/dl Total Bilirubin 0.4 (0.2-1.0) mg/dl AST 20 (13-39) U/L ALT 17 (7-52) U/L Alkaline Phosphatase 77 (34-104) U/L Total Creatine Kinase 92 (30-223) U/L Troponin I High Sens 77.8 H* (0-20) pg/ml B-Natriuretic Peptide 47 (0-100) pg/ml Total Protein 6.8 (6.0-8.3) gm/dl Albumin 4.6 (3.4-5.0) gm/dl Globulin 2.2 L (2.5-4.0) gm/dl Albumin/Globulin Ratio 2.1 H (0.9-2) Lipase 17 (11-82) U/L TSH 3.531 (0.300-4.500) uIu/ml Administered Medications Discontinued Medications Acetaminophen (Acetaminophen 325 Mg Tab) 650 mg PO Q4H PRN PRN Reason: Pain or Fever Stop: 01/11/25 12:44 Last Admin: 12/13/24 07:46 Dose: 650 mg Documented By: Admin: 12/12/24 15:56 Dose: 650 mg Documented By: LIDYA Amlodipine Besylate (Amlodipine Besylate 5 Mg Tab) 10 mg PO DAILY [facility] Stop: 01/12/25 08:59 Last Admin: 12/14/24 08:11 Dose: 10 mg Documented By: Admin: 12/13/24 07:45 Dose: 10 mg Documented By: LIDYA Aspirin (Aspirin 81 Mg Ectab) 81 mg PO [facility] Stop: 01/12/25 08:59 Last Admin: 12/14/24 08:11 Dose: 81 mg Documented By: Admin: 12/13/24 07:44 Dose: 81 mg Documented By: LIDYA Atorvastatin Calcium (Atorvastatin 40 Mg Tab) 80 mg PO [facility] Stop: 01/12/25 08:59 Last Admin: 12/14/24 08:11 Dose: 80 mg Documented By: Admin: 12/13/24 07:41 Dose: 80 mg Documented By: [facility] Fentanyl Citrate (Fentanyl Citrate Pf 100 Mcg/2 Ml Vial) Confirm Administered Dose 100 mcg .ROUTE .STK-MED ONE Stop: 12/12/24 10:26 Last Increment: 12/12/24 11:17 Dose: 25 mcg Documented By: CRISTELA Furosemide (Furosemide 40 Mg/4 Ml Vial) Confirm Administered Dose 40 mg IV .STK- MED ONE Stop: 12/12/24 11:12 Last Admin: 12/12/24 11:18 Dose: 40 mg Documented By: CRISTELA Heparin Sodium (Porcine) (Heparin (Porcine) 1000 Unit/Ml 10 Ml (Professional Driver Use Only)) Confirm Administered Dose 10,000 units .ROUTE .STK-MED ONE Stop: 12/12/24 10:26 Last Admin: 12/12/24 11:16 Dose: 7,000 units Documented By: CRISTELA Heparin Sodium (Porcine) (Heparin Sod (Porcine) 1000 Unit/Ml) 5,000 units IV NOW ONE Stop: 12/12/24 10:26 Last Admin: 12/12/24 10:58 Dose: 5,000 units Documented By: CRISTELA Co-signed By: DRAKE Heparin Sodium (Porcine) (Heparin Sod 5,000 Unit/0.5 Ml Vial) Confirm Administered Dose 5,000 units .ROUTE .STK-MED ONE Stop: 12/12/24 10:27 Last Admin: 12/12/24 10:28 Dose: 5,000 units Documented By: CHANTAL Heparin Sodium (Porcine) (Heparin Sod 5,000 Unit/0.5 Ml Vial) 5,000 units SQ Q12 [facility] Stop: 01/11/25 20:59 Last Admin: 12/14/24 08:11 Dose: 5,000 units Documented By: Admin: 12/13/24 20:09 Dose: 5,000 units Documented By: Admin: 12/13/24 07:47 Dose: 5,000 units Documented By: Admin: 12/12/24 20:22 Dose: 5,000 units Documented By: MARIA ISABEL Heparin Sodium/Sodium Chloride (Heparin In Nss Infusion 1000 Unit/500 Ml (2 U/Ml) Bag) Confirm Administered Dose 3,000 units IV .STK-MED ONE Stop: 12/12/24 10:26 Last Admin: 12/12/24 10:58 Dose: 3,000 units Documented By: CRISTELA Ioversol (Optiray 350) Confirm Administered Dose 1 ml .ROUTE .STK-MED ONE Stop: 12/12/24 10:27 Last Admin: 12/12/24 14:31 Dose: Not Given Documented By: LIDYA Lidocaine HCl (Lidocaine 1% Local 20 Ml Vial) Confirm Administered Dose 1 ml .ROUTE .STK-MED ONE Stop: 12/12/24 10:29 Last Admin: 12/12/24 11:17 Dose: 1 ml Documented By: [id number] Losartan Potassium (Losartan Potassium 50 Mg Tab) 100 mg PO DAILY [facility] Stop: 01/12/25 08:59 Last Admin: 12/14/24 08:12 Dose: 100 mg Documented By: Admin: 12/13/24 07:44 Dose: 100 mg Documented By: LIDYA Magnesium Oxide (Magnesium Oxide 400 Mg Tab) 400 mg PO NOW ONE Stop: 12/13/24 05:45 Last Admin: 12/13/24 05:55 Dose: 400 mg Documented By: MARIA ISABEL Metoprolol Tartrate (Metoprolol Tartrate 25 Mg Tab) 25 mg PO BID [facility] Stop: 01/11/25 20:59 Last Admin: 12/14/24 08:12 Dose: 25 mg Documented By: Admin: 12/13/24 20:04 Dose: 25 mg Documented By: Admin: 12/13/24 07:43 Dose: 25 mg Documented By: Admin: 12/12/24 20:23 Dose: 25 mg Documented By: MARIA ISABEL Midazolam HCl (Midazolam Hcl 1 Mg/Ml 2ml Vial) Confirm Administered Dose 2 mg .ROUTE .STK-MED ONE Stop: 12/12/24 10:26 Last Increment: 12/12/24 11:17 Dose: 1 mg Documented By: CRISTELA Miscellaneous (Icu Electrolyte Replacement Protocol) 1 each N/A BID@ [facility]; Protocol Stop: 12/20/24 05:59 Last Admin: 12/13/24 05:42 Dose: 1 each Documented By: MARIA ISABEL Nicardipine HCl (Nicardipine Hcl Inj 2.5 Mg/Ml 10 Ml Amp) Confirm Administered Dose 25 mg .ROUTE .STK-MED ONE Stop: 12/12/24 10:26 Last Admin: 12/12/24 10:57 Dose: 25 mg Documented By: [id number] Nitroglycerin/Dextrose (Nitroglycerin/D5w 100mcg/Ml 20ml Syr) Confirm Administered Dose 2,000 mcg .ROUTE .STK-MED ONE Stop: 12/12/24 10:27 Last Admin: 12/12/24 10:57 Dose: 2,000 mcg Documented By: [id number] Oxcarbazepine (Oxcarbazepine 150 Mg Tablet) 450 mg PO HS [facility] Stop: 01/11/25 20:59 Last Admin: 12/13/24 20:04 Dose: 450 mg Documented By: Admin: 12/12/24 20:24 Dose: 450 mg Documented By: MARIA ISABEL Oxcarbazepine (Oxcarbazepine 150 Mg Tablet) 300 mg PO DAILY [facility] Stop: 01/12/25 08:59 Last Admin: 12/14/24 08:12 Dose: 300 mg Documented By: Admin: 12/13/24 07:42 Dose: 300 mg Documented By: LIDYA Spironolactone (Spironolactone 25 Mg Tab) 50 mg PO DAILY [facility] Stop: 01/12/25 08:59 Last Admin: 12/14/24 08:12 Dose: 50 mg Documented By: Admin: 12/13/24 07:43 Dose: 50 mg Documented By: LIDYA Tamsulosin HCl (Tamsulosin Hcl 0.4 Mg Cap) 0.4 mg PO DAILY [facility] Stop: 01/12/25 08:59 Last Admin: 12/14/24 08:12 Dose: 0.4 mg Documented By: Admin: 12/13/24 07:43 Dose: 0.4 mg Documented By: LIDYA Ticagrelor (Ticagrelor 90 Mg Tab) 180 mg PO ONE ONE Stop: 12/12/24 10:26 Last Admin: 12/12/24 10:28 Dose: 180 mg Documented By: CHANTAL Ticagrelor (Ticagrelor 90 Mg Tab) Confirm Administered Dose 180 mg .ROUTE .STK- MED ONE Stop: 12/12/24 10:27 Last Admin: 12/12/24 10:57 Dose: 180 mg Documented By: CRISTELA Ticagrelor (Ticagrelor 90 Mg Tab) 90 mg PO BID [facility] Stop: 01/11/25 22:29 Last Admin: 12/14/24 08:12 Dose: 90 mg Documented By: Admin: 12/13/24 20:04 Dose: 90 mg Documented By: Admin: 12/13/24 07:45 Dose: 90 mg Documented By: Admin: 12/12/24 20:25 Dose: 90 mg Documented By: MARIA ISABEL Discharge Plan Visit Data Chief Complaint: Heart Alert ED Provider: Naomy Santo Discharge Problem: ST elevation (STEMI) myocardial infarction Patient Disposition: Admitted As Inpatient Discharge Instructions Interventions: ED Discharge Assessment Last Done: 12/12/24 10:38
[2024-12-12] MEDS: ACETAMINOPHEN 325 MG TAB PO PRN (15:56)
[2024-12-12] MEDS: HEPARIN SOD 5,000 UNIT/0.5 ML VIAL SQ SCH (20:22)
[2024-12-12] MEDS: METOPROLOL TARTRATE 25 MG TAB PO SCH (20:23)
[2024-12-12] MEDS: OXcarbazepine 150 MG TABLET PO SCH (20:24)
[2024-12-12] MEDS: TICAGRELOR 90 MG TAB PO SCH (20:25)
[2024-12-13 04:56] LABS: Hematocrit (blood only) 38.3 % (42.0-52.0); Hemoglobin 13.7 g/dl (14.0-18.0); Mean Corpuscular Hemoglobin 33.3 pg (25.0-34.0); Mean Corpuscular Hgb Conc 35.8 g/dL (32.0-36.0); Mean Corpuscular Volume 93.2 fL (80.0-100.0); Mean Platelet Volume 9.5 fL (9.4-12.4); Platelet Count 275 K/uL (130-400); RDW Coefficient of Variation 12.3 % (11.5-14.5); RDW Standard Deviation 42.7 fL (36.4-46.3); Red Blood Count 4.11 M/uL (4.70-6.10); White Blood Count 11.38 K/ul (4.8-10.8)
[2024-12-13 05:14] LABS: BUN Creatinine Ratio 16.4 (10-20); Chol HDL Ratio 3.1 (0-5); Magnesium 1.8 mg/dl (1.7-2.4)
[2024-12-13] MEDS: ICU ELECTROLYTE REPLACEMENT PROTOCOL SCH (05:42)
--- NOTE | 2024-12-13 05:43 | Electrocardiogram Report ---
Test Reason : Blood Pressure : */* mmHG Vent. Rate : 70 BPM Atrial Rate : 70 BPM P-R Int : 158 ms QRS Dur : 100 ms QT Int : 402 ms P-R-T Axes : 52 40 61 degrees QTcB Int : 434 ms Normal sinus rhythm ST elevation consider lateral injury or acute infarct When compared with ECG of 12-Dec-2024 10:24, ST less depressed in Anterior leads Nonspecific T wave abnormality no longer evident in Anterior leads ST less elevated in Lateral leads Confirmed by Jose Mcnamara ([id number]) on 12/13/2024 5:43:33 AM Referred By: REFERRED SELF Confirmed By: Jose Mcnamara
--- NOTE | 2024-12-13 05:43 | Electrocardiogram Report ---
Test Reason : Blood Pressure : */* mmHG Vent. Rate : 69 BPM Atrial Rate : 69 BPM P-R Int : 156 ms QRS Dur : 108 ms QT Int : 388 ms P-R-T Axes : 66 30 51 degrees QTcB Int : 415 ms Normal sinus rhythm ST elevation consider lateral injury or acute infarct ACUTE ME / STEMI Abnormal ECG When compared with ECG of 29-Jan-2024 15:53, ST now depressed in Anterior leads ST elevation now present in Lateral leads Confirmed by Jose Mcnamara ([id number]) on 12/13/2024 5:42:47 AM Referred By: REFERRED SELF Confirmed By: Jose Mcnamara
[2024-12-13] MEDS: MAGNESIUM OXIDE 400 MG TAB PO ONE (05:55)
[2024-12-13] MEDS: ATORVASTATIN 40 MG TAB PO SCH (07:41)
[2024-12-13] MEDS: OXcarbazepine 150 MG TABLET PO SCH (07:42)
[2024-12-13] MEDS: SPIRONOLACTONE 25 MG TAB PO SCH (07:43)
[2024-12-13] MEDS: TAMSULOSIN HCL 0.4 MG CAP PO SCH (07:43)
[2024-12-13] MEDS: ASPIRIN 81 MG ECTAB PO SCH (07:44)
[2024-12-13] MEDS: LOSARTAN POTASSIUM 50 MG TAB PO SCH (07:44)
[2024-12-13] MEDS: amLODIPine BESYLATE 5 MG TAB PO SCH (07:45)
[2024-12-13 08:39] LABS: Estimated Average Glucose 105 mg/dl; Hemoglobin A1C 5.3 % (4.5-5.6)
[2024-12-13] MEDS ORDERED: ATORVASTATIN 40 MG TAB PO SCH (09:00)
--- NOTE | 2024-12-13 09:49 | Cardiology Progress Note ---
Date of Service December 13, 2024 Assessment & Plan (1) STEMI (ST elevation myocardial infarction): (2) CAD (coronary artery disease): (3) S/P coronary artery stent placement: (4) Ischemic cardiomyopathy: (5) Hypertension: (6) Hyperlipidemia: (7) Nonsustained ventricular tachycardia: Plan ASSESSMENT/PLAN: 1. Circumflex STEMI: Underwent PCI with drug-eluting stent. Reduced LV systolic function on left ventriculography. Echo pending this morning. No further angina. Continue aspirin 81 mg daily indefinitely. Continue Brilinta for at least 1 year. Continue beta-adarsh, ARB. High intensity statin therapy initiated. Cardiac rehab. 2. CAD s/p Cx PCI: Has residual nonobstructive CAD within the LAD and circumflex. No further angina. Continue dual antiplatelet therapy as above. High intensity statin therapy. Plan as above. 3. Hypertension: Follows in the hypertension clinic through nephrology. Blood pressure well-controlled today. 4. Dyslipidemia: Was not previously on statin therapy. Agree with high intensity statin therapy. 5. Ischemic cardiomyopathy: Reduced LV systolic function on left ventriculography. Formal echo ending today. Appears euvolemic. LVEDP was elevated while acutely ischemic. Monitor for signs or symptoms of hypervolemia. Replace metoprolol tartrate with metoprolol succinate 50 mg before or at discharge. 6. Nonsustained ventricular tachycardia: Not unexpected initially following DE and revascularization. Continue telemetry. Continue beta-adarsh. 7. Hyponatremia: As per primary hospitalist service. 8. Disposition: Cardiology will continue to follow. Patient care communicated with Dr. Ortega of the critical care team. Can be transferred to PCU from cardiology perspective. Cardiac rehab. Admission and Anticipated Discharge Date Admission Date: December 12, 2024 Subjective He was seen this morning. He denies any further chest pain, shortness of breath, syncope, near syncope, palpitations, or edema. He reports no issues from his right radial cath site. He was unaccompanied. Physical Exam Physical Exam: Gen.: No acute distress. Alert and oriented. HEENT: Anicteric sclera. Neck: No JVD. Cardiac: Regular. Normal S1-S2. No murmurs, rubs, or gallops. Pulmonary: Clear to auscultation bilaterally without wheezes, rales, or rhonchi. Abdomen: Soft, nontender, nondistended, with normoactive bowel sounds. No bruits noted. Extremities: Right radial cath site was clean, dry, and intact without erythema or discharge. 2+ left radial pulse. 2+ posterior tibialis pulses bilaterally. No edema or cyanosis. Psychiatric: Affect appears appropriate. Results & Data Vital Signs (Past 12 Hours) Vital Signs Temp Pulse Resp BP Pulse Ox 12/13/24 08:00 68 12/13/24 05:00 65 12/13/24 04:51 63 10 L 95 12/13/24 04:30 59 L 10 L 95 12/13/24 04:27 62 13 92 12/13/24 04:03 64 13 92 12/13/24 04:00 126/77 12/13/24 04:00 126/77 12/13/24 04:00 126/77 12/13/24 04:00 126/77 12/13/24 04:00 126/77 12/13/24 04:00 126/77 12/13/24 04:00 126/77 12/13/24 04:00 126/77 12/13/24 04:00 126/77 12/13/24 04:00 126/77 12/13/24 04:00 126/77 12/13/24 04:00 126/77 12/13/24 04:00 126/77 12/13/24 04:00 126/77 12/13/24 04:00 126/77 12/13/24 04:00 126/77 12/13/24 04:00 126/77 12/13/24 04:00 126/77 12/13/24 04:00 126/77 12/13/24 04:00 126/77 12/13/24 04:00 126/77 12/13/24 04:00 126/77 12/13/24 04:00 126/77 12/13/24 03:36 69 12 94 12/13/24 03:33 61 7 L 96 12/13/24 03:24 64 13 95 12/13/24 03:00 112/83 12/13/24 03:00 112/83 12/13/24 03:00 112/83 12/13/24 03:00 112/12/13/24 03:00 11212/13/24 03:00 11212/13/24 03:00 112/83 12/13/24 03:00 112/83 12/13/24 03:00 112/83 12/13/24 03:00 112/83 12/13/24 03:00 112/83 12/13/24 03:00 112/83 12/13/24 03:00 112/83 12/13/24 03:00 112/12/13/24 03:00 112/12/13/24 03:00 112/12/13/24 03:00 112/83 12/13/24 03:00 112/83 12/13/24 03:00 71 13 95 12/13/24 02:54 60 17 96 12/13/24 02:47 36.8 C 12/13/24 02:45 68 10 L 96 12/13/24 02:33 63 14 93 12/13/24 02:21 62 15 96 12/13/24 02:18 70 17 93 12/13/24 02:03 63 10 L 94 12/13/24 02:00 119/80 12/13/24 02:00 119/80 12/13/24 02:00 119/80 12/13/24 02:00 119/80 12/13/24 02:00 119/80 12/13/24 02:00 119/80 12/13/24 02:00 119/80 12/13/24 02:00 119/80 12/13/24 02:00 119/80 12/13/24 02:00 119/80 12/13/24 02:00 119/80 12/13/24 02:00 119/80 12/13/24 02:00 119/80 12/13/24 02:00 119/80 12/13/24 02:00 119/80 12/13/24 02:00 119/80 12/13/24 02:00 119/80 12/13/24 02:00 119/80 12/13/24 02:00 119/80 12/13/24 02:00 119/80 12/13/24 02:00 119/80 12/13/24 02:00 119/80 12/13/24 02:00 119/80 12/13/24 02:00 119/80 12/13/24 02:00 119/80 12/13/24 02:00 119/80 12/13/24 01:57 61 10 L 90 12/13/24 01:45 63 13 96 12/13/24 01:39 64 9 L 94 12/13/24 01:15 63 8 L 94 12/13/24 01:06 61 16 95 12/13/24 01:01 12/13/24 01:01 12/13/24 01:01 12/13/24 01:01 12/13/24 01:01 12/13/24 01:01 12/13/24 01:01 12/13/24 01:01 12/13/24 01:01 12/13/24 01:01 Intake & Output 12/11/24 12/12/24 12/13/24 12/14/24 05:59 06:59 06:59 06:59 Intake Total 925 / 925 250 / 250 Output Total 2425 / 2425 300 / 300 Balance -1500 / -1500 -50 / -50 Weight 179 lb 0.246 oz Laboratory Results Laboratory Results - last 24 hr 12/12/24 12/12/24 12/12/24 10:20 10:36 12:34 WBC 12.93 H RBC 4.93 Hgb 16.5 Hct 46.4 MCV 94.1 MCH 33.5 MCHC 35.6 RDW Std Deviation 42.9 RDW Coeff of Obed 12.3 Plt Count 318 MPV 9.4 Immature Gran % (Auto) 0.5 Neut % (Auto) 78.9 Lymph % (Auto) 12.1 Cedar % (Auto) 5.3 Eos % (Auto) 2.3 Baso % (Auto) 0.9 Neut # (Auto) 10.20 H Lymph # (Auto) 1.57 Cedar # (Auto) 0.69 H Eos # (Auto) 0.30 Baso # (Auto) 0.11 Immature Gran # (Auto) 0.06 PT 10.6 INR 1.0 APTT 28 PTT Ratio 1.0 Activ Coag Time Kaolin 389 H Sodium 132 L Potassium 4.3 Chloride 100 Carbon Dioxide 27 Anion Gap 5 BUN 16 Creatinine 1.08 Est Cr Clr Drug Dosing 64.2 eGFR 70.24 BUN/Creatinine Ratio 14.8 Glucose 113 H Estimat Average Glucose Hemoglobin A1c Calcium 9.4 Phosphorus Magnesium 1.9 Total Bilirubin 0.4 AST 20 ALT 17 Alkaline Phosphatase 77 Total Creatine Kinase 92 Troponin I High Sens 77.8 H* 72775.7 H* D B-Natriuretic Peptide 47 Total Protein 6.8 Albumin 4.6 Globulin 2.2 L Albumin/Globulin Ratio 2.1 H Triglycerides Cholesterol LDL Cholesterol, Calc VLDL Cholesterol, Calc HDL Cholesterol Cholesterol/HDL Ratio Lipase 17 TSH 3.531 Nasal Screen MRSA (PCR) 12/12/24 12/13/24 17:30 04:33 WBC 11.38 H RBC 4.11 L Hgb 13.7 L Hct 38.3 L MCV 93.2 MCH 33.3 MCHC 35.8 RDW Std Deviation 42.7 RDW Coeff of Obed 12.3 Plt Count 275 MPV 9.5 Immature Gran % (Auto) Neut % (Auto) Lymph % (Auto) Cedar % (Auto) Eos % (Auto) Baso % (Auto) Neut # (Auto) Lymph # (Auto) Cedar # (Auto) Eos # (Auto) Baso # (Auto) Immature Gran # (Auto) PT INR APTT PTT Ratio Activ Coag Time Kaolin Sodium 129 L Potassium 5.0 Chloride 98 Carbon Dioxide 31 Anion Gap 0 L BUN 21 Creatinine 1.28 Est Cr Clr Drug Dosing 46.0 eGFR 57.29 BUN/Creatinine Ratio 16.4 Glucose 117 H Estimat Average Glucose 105 Hemoglobin A1c 5.3 Calcium 9.0 Phosphorus 4.0 Magnesium 1.8 Total Bilirubin AST ALT Alkaline Phosphatase Total Creatine Kinase Troponin I High Sens B-Natriuretic Peptide Total Protein Albumin Globulin Albumin/Globulin Ratio Triglycerides 89 Cholesterol 169 LDL Cholesterol, Calc 96 VLDL Cholesterol, Calc 18 HDL Cholesterol 55 Cholesterol/HDL Ratio 3.1 Lipase TSH Nasal Screen MRSA (PCR) Negative Diagnostic Findings Telemetry personally reviewed: Predominantly sinus rhythm. Very brief episodes of nonsustained ventricular tachycardia and AI VR. Labs reviewed: High-sensitivity troponin up to 25,257 thus far. Repeating troponin from this morning. Normal BNP, normal potassium, mild hyponatremia, elevated LDL in the setting of CAD, mild leukocytosis, mild anemia. Medications Administered Current Inpatient Medications Acetaminophen (Acetaminophen 325 Mg Tab) 650 mg PO Q4H PRN PRN Reason: Pain or Fever Stop: 01/11/25 12:44 Last Admin: 12/13/24 07:46 Dose: 650 mg Amlodipine Besylate (Amlodipine Besylate 5 Mg Tab) 10 mg PO DAILY [facility] Stop: 01/12/25 08:59 Last Admin: 12/13/24 07:45 Dose: 10 mg Aspirin (Aspirin 81 Mg Ectab) 81 mg PO QAM [facility] Stop: 01/12/25 08:59 Last Admin: 12/13/24 07:44 Dose: 81 mg Atorvastatin Calcium (Atorvastatin 40 Mg Tab) 80 mg PO QAM [facility] Stop: 01/12/25 08:59 Last Admin: 12/13/24 07:41 Dose: 80 mg Heparin Sodium (Porcine) (Heparin Sod 5,000 Unit/0.5 Ml Vial) 5,000 units SQ Q12 [facility] Stop: 01/11/25 20:59 Last Admin: 12/13/24 07:47 Dose: 5,000 units Losartan Potassium (Losartan Potassium 50 Mg Tab) 100 mg PO DAILY [facility] Stop: 01/12/25 08:59 Last Admin: 12/13/24 07:44 Dose: 100 mg Metoprolol Tartrate (Metoprolol Tartrate 25 Mg Tab) 25 mg PO BID [facility] Stop: 01/11/25 20:59 Last Admin: 12/13/24 07:43 Dose: 25 mg Miscellaneous (Icu Electrolyte Replacement Protocol) 1 each N/A BID@,18 [facility]; Protocol Stop: 12/20/24 05:59 Last Admin: 12/13/24 05:42 Dose: 1 each Nitroglycerin (Nitroglycerin Sl 0.4 Mg/Tab Tab) 0.4 mg SL Q5M PRN PRN Reason: Chest Pain Stop: 01/11/25 11:21 Ondansetron HCl (Ondansetron Inj 2 Mg/Ml 2 Ml Vial) 4 mg IV Q6H PRN PRN Reason: Nausea Stop: 01/11/25 12:44 Oxcarbazepine (Oxcarbazepine 150 Mg Tablet) 450 mg PO HS [facility] Stop: 01/11/25 20:59 Last Admin: 12/12/24 20:24 Dose: 450 mg Oxcarbazepine (Oxcarbazepine 150 Mg Tablet) 300 mg PO DAILY [facility] Stop: 01/12/25 08:59 Last Admin: 12/13/24 07:42 Dose: 300 mg Spironolactone (Spironolactone 25 Mg Tab) 50 mg PO DAILY [facility] Stop: 01/12/25 08:59 Last Admin: 12/13/24 07:43 Dose: 50 mg Tamsulosin HCl (Tamsulosin Hcl 0.4 Mg Cap) 0.4 mg PO DAILY [facility] Stop: 01/12/25 08:59 Last Admin: 12/13/24 07:43 Dose: 0.4 mg Ticagrelor (Ticagrelor 90 Mg Tab) 90 mg PO BID [facility] Stop: 01/11/25 22:29 Last Admin: 12/13/24 07:45 Dose: 90 mg PG Care Time/CCT Total # of Minutes Spent Total Time Spent with Patient: Total time spent is greater than 50% in coordination of care (as documented) at patient's floor/unit and/or counseling patient: Coding Level of Care Code 67577 SUB INP/OBS CARE 3/50MIN Diagnoses STEMI (ST elevation myocardial infarction) I21.3 CAD (coronary artery disease) I25.10 S/P coronary artery stent placement Z95.5 Ischemic cardiomyopathy I25.5 Primary hypertension I10 Hypertension type: primary hypertension Hyperlipidemia E78.5 Nonsustained ventricular tachycardia I47.29 (5) Hypertension Hypertension type: primary hypertension Qualified Code(s): I10 - Essential (primary) hypertension
--- NOTE | 2024-12-13 10:01 | Critical Care Progress Note ---
Date of Service December 13, 2024 Assessment & Plan (1) STEMI (ST elevation myocardial infarction): (2) 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: (3) Hyperlipidemia: (4) Hypertension: Plan Impression: 79-year-old male with hypertension hyperlipidemia presenting with acute coronary syndrome and an acute occluded circumflex status post drug- eluting stent. LVEDP was elevated at 28 and ejection fraction was reduced in the lab estimated at 30 to 35%. He is hemodynamically stable in the ICU. Recommendations: 1. Neurologic: No current issues. Patient can get up to the chair as tolerated. 2. Cardiovascular: Acute coronary syndrome status post drug-eluting stent. Continue dual antiplatelet agents. Will continue metoprolol. Continue MAGDI inhibitor. Will need cardiac rehab in the outpatient setting. Await formal echocardiogram. Continue high-dose statin therapy. Per cardiology the patient is stable for downgrade. 3. Pulmonary: No current issues. Weaning oxygen as tolerated. 4. Renal: Mild hyponatremia. Electrolytes and acid-base status are appropriate. Possible volume overload given elevated EDP. Defer diuresis to cardiology. 5. GI: Advancing diet as tolerated. 6. Endocrine: Glycemic control per protocol. A1c 5.3. 7. Heme-onc: Mild leukocytosis likely secondary to acute coronary syndrome. No indication for infection and no indication for antibiotics currently. 8. ID: No current issues. Patient stable for downgrade to PCU. Admission and Anticipated Discharge Date Admission Date: December 12, 2024 Subjective Patient without any complaints of chest pain, shortness of breath or dizziness. Tolerating appetite well. No hemodynamic issues. Review of Systems Review of Systems: All systems reviewed & are unremarkable except as noted in HPI & below Physical Exam Physical Exam: Gen.: No acute distress. Alert and oriented. HEENT: Anicteric sclera. Neck: No JVD. Cardiac: Regular. Normal S1-S2. No murmurs, rubs, or gallops. Pulmonary: Clear to auscultation bilaterally without wheezes, rales, or rhonchi. Abdomen: Soft, nontender, nondistended, with normoactive bowel sounds. No bruits noted. Extremities: Right radial cath site was clean, dry, and intact without erythema or discharge. 2+ left radial pulse. 2+ posterior tibialis pulses bilaterally. No edema or cyanosis. Psychiatric: Affect appears appropriate. Results & Data Results & Data Vital Signs (Past 12 Hours) Vital Signs Temp Pulse Resp BP Pulse Ox 12/13/24 08:00 68 12/13/24 05:00 65 12/13/24 04:51 63 10 L 95 12/13/24 04:30 59 L 10 L 95 12/13/24 04:27 62 13 92 12/13/24 04:03 64 13 92 12/13/24 04:00 126/77 12/13/24 04:00 126/77 12/13/24 04:00 126/77 12/13/24 04:00 126/77 12/13/24 04:00 126/77 12/13/24 04:00 126/77 12/13/24 04:00 126/77 12/13/24 04:00 126/77 12/13/24 04:00 126/77 12/13/24 04:00 126/77 12/13/24 04:00 126/77 12/13/24 04:00 126/77 12/13/24 04:00 126/77 12/13/24 04:00 126/77 12/13/24 04:00 126/77 12/13/24 04:00 126/77 12/13/24 04:00 126/77 12/13/24 04:00 126/77 12/13/24 04:00 126/77 12/13/24 04:00 126/77 12/13/24 04:00 126/77 12/13/24 04:00 126/77 12/13/24 04:00 126/77 12/13/24 03:36 69 12 94 12/13/24 03:33 61 7 L 96 12/13/24 03:24 64 13 95 12/13/24 03:00 11212/13/24 03:00 11212/13/24 03:00 11212/13/24 03:00 11212/13/24 03:00 11212/13/24 03:00 11212/13/24 03:00 11212/13/24 03:00 11212/13/24 03:00 11212/13/24 03:00 11212/13/24 03:00 11212/13/24 03:00 11212/13/24 03:00 112/83 12/13/24 03:00 112/83 12/13/24 03:00 112/83 12/13/24 03:00 112/83 12/13/24 03:00 112/83 12/13/24 03:00 112/83 12/13/24 03:00 71 13 95 12/13/24 02:54 60 17 96 12/13/24 02:47 36.8 C 12/13/24 02:45 68 10 L 96 12/13/24 02:33 63 14 93 12/13/24 02:21 62 15 96 12/13/24 02:18 70 17 93 12/13/24 02:03 63 10 L 94 12/13/24 02:00 119/80 12/13/24 02:00 119/80 12/13/24 02:00 119/80 12/13/24 02:00 119/80 12/13/24 02:00 119/80 12/13/24 02:00 119/80 12/13/24 02:00 119/80 12/13/24 02:00 119/80 12/13/24 02:00 119/80 12/13/24 02:00 119/80 12/13/24 02:00 119/80 12/13/24 02:00 119/80 12/13/24 02:00 119/80 12/13/24 02:00 119/80 12/13/24 02:00 119/80 12/13/24 02:00 119/80 12/13/24 02:00 119/80 12/13/24 02:00 119/80 12/13/24 02:00 119/80 12/13/24 02:00 119/80 12/13/24 02:00 119/80 12/13/24 02:00 119/80 12/13/24 02:00 119/80 12/13/24 02:00 119/80 12/13/24 02:00 119/80 12/13/24 02:00 119/80 12/13/24 01:57 61 10 L 90 12/13/24 01:45 63 13 96 12/13/24 01:39 64 9 L 94 12/13/24 01:15 63 8 L 94 12/13/24 01:06 61 16 95 12/13/24 01:01 12/13/24 01:01 12/13/24 01:01 12/13/24 01:01 12/13/24 01:01 12/13/24 01:01 12/13/24 01:01 12/13/24 01:01 12/13/24 01:01 12/13/24 01:01 Coding Level of Care Code 83056 SUB INP/OBS CARE MIN Diagnoses STEMI (ST elevation myocardial infarction) I21.3 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 I50.20; I25.10 Hyperlipidemia E78.5 Primary hypertension I10 Hypertension type: primary hypertension (4) Hypertension Hypertension type: primary hypertension Qualified Code(s): I10 - Essential (primary) hypertension
[2024-12-13 11:01] LABS: Troponin I High Sensitivity 80677.3 pg/ml (0-20)
--- NOTE | 2024-12-13 19:14 | XCELERA ---
[id number] \\[id number]
--- NOTE | 2024-12-13 23:04 | Hospitalist Progress Note ---
Date of Service December 13, 2024 Assessment & Plan (1) STEMI (ST elevation myocardial infarction): (2) Hypertension: (3) Hyperlipidemia: (4) Depression with anxiety: (5) Complex partial seizure disorder: (6) BPH (benign prostatic hyperplasia): (7) Chewing tobacco nicotine dependence: Plan 79yo male presented as heart alert. PMHx significant for HTN, HLD, tobacco use, seizure disordered. Recent addition of metoprolol by HTN clinic on 11/26 by Marla Lazo in addition to usual amlodipine, olmesartan and spironolactone. Not on ASA/statin at baseline, prior lipid panel December 2023 w/ TRG 91, Cholesterol 187 with LDL 104 and HDL 65. #STEMI, Heart Alert On admission EKG w/ depression in anterior leads concerning for STEMI to RCA vs circumflex Provided with Brillinta 180mg PO x 1 and heparin bolus prior to intervention with Dr Cantu s/p cath with Dr Cantu revealed 100% occlusion to circumflex. s/p CLARE x 1. Admit to ICU Wallpaperer consulted Troponin elevation post-cath not unsurprising but no CP/sx at present Aspirin 81mg daily and lipitor 40mg -- new rx at dc +Metoprolol 25mg BID Olmesartan, spironolactone to resume in AM pending BP/renal function (BP 130/84 presently) EKG w/ CP, Nitro SL available Cards consulted/following Lipid panel and A1c w/ AM labs Smoking cessation to be encouraged Monitor on telemetry overnight Patient is stable will downgrade to PCU discussed with caddy Chronic medical issues: #Tobacco use- encourage cessation #BPH - continue flomax, monitor UOP #Seizure disorder- continue oxcarbazepine 450mg HS #Depression - continue sertraline, recent stress w/ daughter dx breast ca. Supportive care DVT proph: Heparin SQ BID Will need ASA/lipitor at dc, new rx for changed metoprolol dosing Admission and Anticipated Discharge Date Admission Date: December 12, 2024 Subjective Patient reports no new symptoms. Patient states he is breathing well and pain has improved. Physical Exam Physical Exam: General: 79yo male lying in bed, NAD, family in room Head atraumatic, +facial hair, mmm, trachea midline Resp; even/unlabored, on room air no tachypnea/cough CV: RRR, no significant m/r/g, no pitting edema or calf tenderness, pulses present GI: +BS,soft/NT MSK/Neuro: nonfocal, not confused, answering questions appropriately Psych: AOx3, cooperative with exam Results & Data Results & Data Vital Signs (Past 12 Hours) Vital Signs Temp Pulse Pulse Resp BP BP Pulse Ox 12/13/24 22:54 36.6 C 75 20 92/65 L 93 12/13/24 19:31 36.4 C L 62 18 106/67 97 12/13/24 17:40 36.5 C 66 19 122/74 99 12/13/24 16:00 60 12/13/24 15:02 100/61 12/13/24 14:54 60 16 12/13/24 14:15 62 16 12/13/24 14:01 110/57 L 12/13/24 14:01 110/57 L 12/13/24 13:42 55 L 12 12/13/24 13:06 57 L 12 12/13/24 12:39 54 L 13 12/13/24 12:25 126/76 12/13/24 12:25 126/76 12/13/24 12:09 56 L 11 L 12/13/24 11:48 55 L 11 L 12/13/24 11:30 61 18 12/13/24 11:23 12/13/24 11:18 57 L 13 12/13/24 11:12 58 L 14 Pulse Ox O2 Del Method O2 Del Method O2 Flow Rate 12/13/24 22:54 Nasal Cannula 7 12/13/24 19:31 Room Air 12/13/24 17:40 Room Air 12/13/24 16:00 12/13/24 15:02 12/13/24 14:54 12/13/24 14:15 12/13/24 14:01 12/13/24 14:01 12/13/24 13:42 12/13/24 13:06 12/13/24 12:39 12/13/24 12:25 12/13/24 12:25 12/13/24 12:09 12/13/24 11:48 12/13/24 11:30 12/13/24 11:23 99 Room Air 12/13/24 11:18 12/13/24 11:12 PG Care Time/CCT Total # of Minutes Spent Total Time Spent with Patient: Total time spent is greater than 50% in coordination of care (as documented) at patient's floor/unit and/or counseling patient: Coding Level of Care Code 14325 SUB INP/OBS CARE 350MIN Diagnoses STEMI (ST elevation myocardial infarction) I21.3 Primary hypertension I10 Hypertension type: primary hypertension Hyperlipidemia E78.5 Depression with anxiety F41.8 Complex partial seizure disorder G40.209 BPH (benign prostatic hyperplasia) N40.0 Chewing tobacco nicotine dependence F17.220 (2) Hypertension Hypertension type: primary hypertension Qualified Code(s): I10 - Essential (primary) hypertension
--- NOTE | 2024-12-14 05:46 | Electrocardiogram Report ---
Test Reason : Blood Pressure : */* mmHG Vent. Rate : 66 BPM Atrial Rate : 66 BPM P-R Int : 166 ms QRS Dur : 94 ms QT Int : 414 ms P-R-T Axes : 56 31 60 degrees QTcB Int : 434 ms Normal sinus rhythm Normal ECG When compared with ECG of 12-Dec-2024 11:43, ST no longer elevated in Anterolateral leads Confirmed by Jose Mcnamara ([id number]) on 12/14/2024 5:46:18 AM Referred By: REFERRED SELF Confirmed By: Jose Mcnamara
--- NOTE | 2024-12-14 05:47 | Electrocardiogram Report ---
Test Reason : Blood Pressure : */* mmHG Vent. Rate : 63 BPM Atrial Rate : 63 BPM P-R Int : 168 ms QRS Dur : 92 ms QT Int : 432 ms P-R-T Axes : 49 9 77 degrees QTcB Int : 442 ms Normal sinus rhythm Normal ECG When compared with ECG of 12-Dec-2024 15:43, No significant change was found Confirmed by Jose Mcnamara ([id number]) on 12/14/2024 5:46:33 AM Referred By: REFERRED SELF Confirmed By: Jose Mcnamara
[2024-12-14 06:45] LABS: Hematocrit (blood only) 35.7 % (42.0-52.0); Hemoglobin 12.5 g/dl (14.0-18.0); Mean Corpuscular Volume 94.2 fL (80.0-100.0); Mean Platelet Volume 9.6 fL (9.4-12.4); Platelet Count 238 K/uL (130-400); RDW Coefficient of Variation 12.2 % (11.5-14.5); RDW Standard Deviation 42.6 fL (36.4-46.3); Red Blood Count 3.79 M/uL (4.70-6.10); White Blood Count 10.36 K/ul (4.8-10.8)
[2024-12-14 07:00] LABS: Calcium 8.7 mg/dl (8.6-10.3); Creatinine Clr Calc Pharmacy 50.2 ml/min; Potassium 4.4 mmol/L (3.5-5.1)
[2024-12-14 07:34] LABS: Troponin I High Sensitivity 30221.6 pg/ml (0-20)
--- NOTE | 2024-12-14 13:53 | Cardiology Progress Note ---
Date of Service December 14, 2024 Assessment & Plan (1) STEMI (ST elevation myocardial infarction): (2) CAD (coronary artery disease): (3) S/P coronary artery stent placement: (4) Ischemic cardiomyopathy: (5) Hypertension: (6) Hyperlipidemia: (7) Nonsustained ventricular tachycardia: Plan ASSESSMENT/PLAN: 1. Circumflex STEMI: Underwent PCI with drug-eluting stent. Mildly reduced LV systolic function. No further angina. Continue aspirin 81 mg daily indefinitely. Continue Brilinta for at least 1 year. Continue beta-adarsh, ARB. High intensity statin therapy initiated. Cardiac rehab. 2. CAD s/p Cx PCI: Has residual nonobstructive CAD within the LAD and circum flex. No further angina. Continue dual antiplatelet therapy as above. High intensity statin therapy. Plan as above. 3. Hypertension: Follows in the hypertension clinic through nephrology. Blood pressure well-controlled today. 4. Dyslipidemia: Was not previously on statin therapy. Agree with high intensity statin therapy. 5. Ischemic cardiomyopathy: Mildly reduced LV systolic function. Appears euvolemic. LVEDP was elevated while acutely ischemic. Monitor for signs or symptoms of hypervolemia. Replace metoprolol tartrate with metoprolol succinate 50 mg before or at discharge. 6. Nonsustained ventricular tachycardia: Not unexpected initially following TN and revascularization. No further ventricular tachycardia. Continue beta- adarsh. 7. Hyponatremia: As per primary hospitalist service. 8. Disposition: Can be discharged from a cardiology perspective. Follow-up is being arranged next week in the cardiology office. Patient care communicated with primary hospitalist, Dr. Beard. Cardiac rehab. Admission and Anticipated Discharge Date Admission Date: December 12, 2024 Subjective Patient was seen this afternoon. He denies chest pain, shortness of breath, syncope, near syncope, palpitations, edema, or bleeding. He is hoping to be discharged today. His daughter was present at the bedside. Physical Exam Physical Exam: Gen.: No acute distress. Alert and oriented. HEENT: Anicteric sclera. Neck: No JVD. Cardiac: Regular. No ectopy. Normal S1-S2. No murmurs, rubs, or gallops. Pulmonary: Clear to auscultation bilaterally without wheezes, rales, or rhonchi. Abdomen: Soft, nontender, nondistended, with normoactive bowel sounds. No bruits noted. Extremities: Right radial cath site is clean, dry, and intact without erythema or discharge. 2+ left radial pulse. 2+ posterior tibialis pulses bilaterally. No edema or cyanosis. Psychiatric: Affect appears appropriate. Results & Data Vital Signs (Past 12 Hours) Vital Signs Temp Pulse Pulse Resp BP Pulse Ox O2 Del Method 12/14/24 10:54 36.7 C 56 L 19 104/66 99 Room Air 12/14/24 09:00 Room Air 12/14/24 08:02 36.5 C 61 20 124/67 93 Room Air 12/14/24 08:00 63 12/14/24 03:50 36.9 C 64 16 109/70 94 Room Air Laboratory Results Laboratory Results - last 24 hr 12/14/24 05:47 WBC 10.36 RBC 3.79 L Hgb 12.5 L Hct 35.7 L MCV 94.2 MCH 33.0 MCHC 35.0 RDW Std Deviation 42.6 RDW Coeff of Obed 12.2 Plt Count 238 MPV 9.6 Sodium 128 L Potassium 4.4 Chloride 96 L Carbon Dioxide 32 Anion Gap 0 L BUN 28 H Creatinine 1.27 Est Cr Clr Drug Dosing 50.2 eGFR 57.83 Fasting Glucose 94 Calcium 8.7 Troponin I High Sens 31386.6 H* D Diagnostic Findings Telemetry personally reviewed: Sinus rhythm and mild sinus bradycardia. No arrhythmia. Labs reviewed and notable for stable renal function, normal potassium, mild anemia. ECG personally reviewed 12/14/2024: Sinus rhythm 62 bpm. Lateral T wave abnormality. Possible anterolateral infarct Echo 12/13/2024: Normal LV size. EF 40-45%. Severe hypokinesis to akinesis of the inferolateral and anterolateral wall segments. Mild LVH. Sclerotic aortic valve. Mild to moderate MR. Borderline dilated aortic root (4.1 cm) and ascending aorta (4.2 cm). RVSP 38. Medications Administered Current Inpatient Medications Acetaminophen (Acetaminophen 325 Mg Tab) 650 mg PO Q4H PRN PRN Reason: Pain or Fever Stop: 01/11/25 12:44 Last Admin: 12/13/24 07:46 Dose: 650 mg Amlodipine Besylate (Amlodipine Besylate 5 Mg Tab) 10 mg PO DAILY [facility] Stop: 01/12/25 08:59 Last Admin: 12/14/24 08:11 Dose: 10 mg Aspirin (Aspirin 81 Mg Ectab) 81 mg PO QAM [facility] Stop: 01/12/25 08:59 Last Admin: 12/14/24 08:11 Dose: 81 mg Atorvastatin Calcium (Atorvastatin 40 Mg Tab) 80 mg PO QAM [facility] Stop: 01/12/25 08:59 Last Admin: 12/14/24 08:11 Dose: 80 mg Heparin Sodium (Porcine) (Heparin Sod 5,000 Unit/0.5 Ml Vial) 5,000 units SQ Q12 [facility] Stop: 01/11/25 20:59 Last Admin: 12/14/24 08:11 Dose: 5,000 units Losartan Potassium (Losartan Potassium 50 Mg Tab) 100 mg PO DAILY [facility] Stop: 01/12/25 08:59 Last Admin: 12/14/24 08:12 Dose: 100 mg Metoprolol Tartrate (Metoprolol Tartrate 25 Mg Tab) 25 mg PO BID [facility] Stop: 01/11/25 20:59 Last Admin: 12/14/24 08:12 Dose: 25 mg Nitroglycerin (Nitroglycerin Sl 0.4 Mg/Tab Tab) 0.4 mg SL Q5M PRN PRN Reason: Chest Pain Stop: 01/11/25 11:21 Ondansetron HCl (Ondansetron Inj 2 Mg/Ml 2 Ml Vial) 4 mg IV Q6H PRN PRN Reason: Nausea Stop: 01/11/25 12:44 Oxcarbazepine (Oxcarbazepine 150 Mg Tablet) 450 mg PO HS [facility] Stop: 01/11/25 20:59 Last Admin: 12/13/24 20:04 Dose: 450 mg Oxcarbazepine (Oxcarbazepine 150 Mg Tablet) 300 mg PO DAILY [facility] Stop: 01/12/25 08:59 Last Admin: 12/14/24 08:12 Dose: 300 mg Spironolactone (Spironolactone 25 Mg Tab) 50 mg PO DAILY [facility] Stop: 01/12/25 08:59 Last Admin: 12/14/24 08:12 Dose: 50 mg Tamsulosin HCl (Tamsulosin Hcl 0.4 Mg Cap) 0.4 mg PO DAILY [facility] Stop: 01/12/25 08:59 Last Admin: 12/14/24 08:12 Dose: 0.4 mg Ticagrelor (Ticagrelor 90 Mg Tab) 90 mg PO BID [facility] Stop: 01/11/25 22:29 Last Admin: 12/14/24 08:12 Dose: 90 mg PG Care Time/CCT Total # of Minutes Spent Total Time Spent with Patient: Total time spent is greater than 50% in coordination of care (as documented) at patient's floor/unit and/or counseling patient: Coding Level of Care Code 86522 SUB INP/OBS CARE 3/50MIN Diagnoses STEMI (ST elevation myocardial infarction) I21.3 CAD (coronary artery disease) I25.10 S/P coronary artery stent placement Z95.5 Ischemic cardiomyopathy I25.5 Primary hypertension I10 Hypertension type: primary hypertension Hyperlipidemia E78.5 Nonsustained ventricular tachycardia I47.29 (5) Hypertension Hypertension type: primary hypertension Qualified Code(s): I10 - Essential (primary) hypertension
[2024-12-14 15:11] VITALS: PULSE 57; RESP 20; TEMP 97.5; O2SAT 95
[2024-12-14 15:56] VITALS: BP 137/89
--- NOTE | 2024-12-14 22:18 | Electrocardiogram Report ---
Test Reason : Blood Pressure : */* mmHG Vent. Rate : 62 BPM Atrial Rate : 62 BPM P-R Int : 164 ms QRS Dur : 88 ms QT Int : 416 ms P-R-T Axes : 62 24 89 degrees QTcB Int : 422 ms Normal sinus rhythm Possible Lateral infarct , age undetermined Abnormal ECG When compared with ECG of 13-Dec-2024 10:15, Borderline criteria for Lateral infarct are now Present Nonspecific T wave abnormality, worse in Anterolateral leads Confirmed by Jose Mcnamara ([id number]) on 12/14/2024 10:17:53 PM Referred By: REFERRED SELF Confirmed By: Jose Mcnamara
== END 2024-12-14 17:16 | disposition home or self-care (01) | DRG 322 ==
LOC: ED 10:20 → 1E 10:38 → SUATTDRO 11:19 → 2E 12-13 17:30